=== PATIENT | male | born 1955 | race Caucasian/White ===

== ENCOUNTER 2017-11-22 14:21 | Inpatient (IN) | payer OTHER ==
[2017-11-22] MEDS ORDERED: ONDANSETRON 4 MG/2 ML VIAL IVP STA ×2 (15:19→17:02)
[2017-11-22] MEDS ORDERED: SODIUM CHLORIDE 0.9% 1,000 ML IV ONE (15:20)
--- NOTE | 2017-11-22 15:38 | ED ---
General Adult HPI - General Chief complaint: Shortness of Breath Stated complaint: fluid on abdomen/cancer pt Time Seen by Provider: 11/22/17 14:54 Source: patient, family Mode of arrival: ambulatory Limitations: no limitations - History of Present Illness Initial comments: 62-year-old male presenting with worsening abdominal pain shortness of breath and weakness. Patient has a history of pancreatic cancer with possible metastasis to the intestines. They state he was diagnosed with this when he had an exploratory laparotomy for a stricture on his colon. His and him state they do not believe in chemotherapy and they have been using homeopathic medication such as essential oils and vitamin therapy. They state they had an appointment with Dr. James at 5:30 to be seen today, but the patient was unable to wait to come in. He states he is having worsening shortness of breath while doing his daily activities he also feels that the pressure in his abdomen is making it difficult to breath. Denies any chest pain, cough, fevers chills. Denies any GI or urinary symptoms. He states he was scheduled to have a paracentesis in the past but they did not find enough fluid to do the procedure. - Related Data Home Medications Medication Instructions Recorded Confirmed Famotidine [Pepcid] 20 mg PO BID 02/28/16 02/28/16 Allergies Allergy/AdvReac Type Severity Reaction Status Date / Time No Known Allergies Allergy Verified 11/22/17 14:32 Review of Systems ROS Statement: Those systems with pertinent positive or pertinent negative responses have been documented in the HPI. Review of Systems Constitutional: Denies fever, chills. Positive generalized weakness Eyes: Denies change in vision, Denies pain Ears, nose, mouth, throat: Denies headaches, Denies sore throat Cardiovascular: Denies chest pain. Denies palpitations Respiratory: Positive shortness of breath, Denies cough Gastrointestinal: Positive abdominal pain. Positive nausea and vomiting. Denies diarrhea. Genitourinary: Denies hematuria, Denies infections Musculoskeletal: Denies pain, Denies swelling Integumentary: Denies rash Neurological: Denies headache, focal weakness, focal numbness. Positive lightheadedness Psychiatric: Denies anxiety, Denies depression Hematologic/Lymphatic: Denies easy bleeding or bruising ROS Other: All systems not noted in ROS Statement are negative. 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 pancreatic cancer History of Any Multi-Drug Resistant Organisms: None Reported Past Surgical History: Hernia Repair Additional Past Surgical History / Comment(s): UMBILICAL HERNIA (1996), RIGHT INGUINAL HERNIA (2010) Past Anesthesia/Blood Transfusion Reactions: No Reported Reaction Past Psychological History: No Psychological Hx Reported Smoking Status: Former smoker Past Alcohol Use History: None Reported Past Drug Use History: Marijuana - Past Family History Mother Family Medical History: Cancer Father Additional Family Medical History / Comment(s): "heart dsease" General Exam - General Exam Comments Initial Comments: General: Awake, alert, No acute Distress. Cachectic HENT: Normocephalic. Atraumatic Eyes: PERRL. EOMI. No scleral icterus. No injected conjunctiva Neck: Full ROM Chest/Lungs: Clear to auscultation bilaterally. No wheezing, rhonchi, or rales Cardiac: Regular rate, rhythm. No murmurs or rubs Abdomen/GI: Distended. Ascites. Epigastric tenderness. No rebound, guarding, or rigidity. Musculoskeletal: Full ROM Skin: Warm, dry, intact Neurologic: A/Ox3, no weakness, no sensory deficit, no abnormal gait, no coordination deficit Limitations: no limitations Course Vital Signs 11/22/17 11/22/17 11/22/17 14:26 15:31 16:30 Temperature 98 F Pulse Rate 58 L 63 81 Respiratory 18 20 20 Rate Blood Pressure 117/79 113/62 119/56 O2 Sat by Pulse 100 96 99 Oximetry 11/22/17 17:22 Temperature Pulse Rate 77 Respiratory 20 Rate Blood Pressure 138/70 O2 Sat by Pulse 95 Oximetry Medical Decision Making - Medical Decision Making 62-year-old male presenting with abdominal pain worsening shortness of breath. Initial exam the patient is awake, alert, no acute distress. VSS. KG shows a right bundle branch block. Do not believe that this is actually a left anterior fascicular block as read by the EKG as the patient was having hiccups during the EKG. Patient has ascites on exam. His CT confirmed the ascites and showed small pleural effusions bilaterally. He is in no acute restaurant stress. Patient has no fever and no white count at this time. Unlikely spontaneous bacterial peritonitis. Will elect to hold on any abx at this time. Spoke with Dr. Metcalf who states place an order for an ultrasound guided paracentesis and admit the patient to medicine. Upon entering the room discussed with patient and he was having an episode of hematemesis. Vital signs remained stable. He remained in no acute distress. He has a history of a chronic gastritis and noncompliance with his Pepcid but no varices were seen on previous EGD. Patient was given 40 mg of breath contacts. I spoke with Dr. Weinstein who is agreeable to admission with on consult as well as Dr. Metcalf. Patient currently stable for transfer to the floor. - Lab Data Result diagrams: 11/22/17 15:09 11/22/17 15:09 Lab Results 11/22/17 11/22/17 11/22/17 Range/Units 15:09 15:09 15:09 WBC 6.2 (3.8-10.6) k/uL RBC 4.20 L (4.30-5.90) m/uL Hgb 12.7 L (13.0-17.5) gm/dL Hct 39.1 (39.0-53.0) % MCV 92.9 (80.0-100.0) fL MCH 30.3 (25.0-35.0) pg MCHC 32.6 (31.0-37.0) g/dL RDW 13.6 (11.5-15.5) % Plt Count 426 (150-450) k/uL Neutrophils % 68 % Lymphocytes % 18 % Monocytes % 6 % Eosinophils % 6 % Basophils % 1 % Neutrophils # 4.2 (1.3-7.7) k/uL Lymphocytes # 1.1 (1.0-4.8) k/uL Monocytes # 0.4 (0-1.0) k/uL Eosinophils # 0.4 (0-0.7) k/uL Basophils # 0.0 (0-0.2) k/uL PT (9.0-12.0) sec INR (<1.2) Sodium 139 (137-145) mmol/L Potassium 4.2 (3.5-5.1) mmol/L Chloride 105 (98-107) mmol/L Carbon Dioxide 28 (22-30) mmol/L Anion Gap 6 mmol/L BUN 15 (9-20) mg/dL Creatinine 0.90 (0.66-1.25) mg/dL Est GFR (CKD-EPI)AfAm >90 (>60 ml/min/1.73 sqM) Est GFR (CKD-EPI)NonAf >90 (>60 ml/min/1.73 sqM) Glucose 122 H (74-99) mg/dL Calcium 9.5 (8.4-10.2) mg/dL Total Bilirubin 0.3 (0.2-1.3) mg/dL Conjugated Bilirubin 0.0 (0.0-0.3) mg/dL Unconjugated Bilirubin 0.1 (0.0-1.1) mg/dL Delta Bilirubin 0.2 (0.0-0.2) mg/dL AST 46 (17-59) U/L ALT 47 (21-72) U/L Alkaline Phosphatase 136 H (38-126) U/L Troponin I <0.012 (0.000-0.034) ng/mL Total Protein 6.5 (6.3-8.2) g/dL Albumin 3.4 L (3.5-5.0) g/dL Lipase 86 (23-300) U/L // Range/Units 15:09 WBC (3.8-10.6) k/uL RBC (4.30-5.90) m/uL Hgb (13.0-17.5) gm/dL Hct (39.0-53.0) % MCV (80.0-100.0) fL MCH (25.0-35.0) pg MCHC (31.0-37.0) g/dL RDW (11.5-15.5) % Plt Count (150-450) k/uL Neutrophils % % Lymphocytes % % Monocytes % % Eosinophils % % Basophils % % Neutrophils # (1.3-7.7) k/uL Lymphocytes # (1.0-4.8) k/uL Monocytes # (0-1.0) k/uL Eosinophils # (0-0.7) k/uL Basophils # (0-0.2) k/uL PT 9.6 (9.0-12.0) sec INR 1.0 (<1.2) Sodium (137-145) mmol/L Potassium (3.5-5.1) mmol/L Chloride (98-107) mmol/L Carbon Dioxide (22-30) mmol/L Anion Gap mmol/L BUN (9-20) mg/dL Creatinine (0.66-1.25) mg/dL Est GFR (CKD-EPI)AfAm (>60 ml/min/1.73 sqM) Est GFR (CKD-EPI)NonAf (>60 ml/min/1.73 sqM) Glucose (74-99) mg/dL Calcium (8.4-10.2) mg/dL Total Bilirubin (0.2-1.3) mg/dL Conjugated Bilirubin (0.0-0.3) mg/dL Unconjugated Bilirubin (0.0-1.1) mg/dL Delta Bilirubin (0.0-0.2) mg/dL AST (17-59) U/L ALT (21-72) U/L Alkaline Phosphatase (38-126) U/L Troponin I (0.000-0.034) ng/mL Total Protein (6.3-8.2) g/dL Albumin (3.5-5.0) g/dL Lipase (23-300) U/L Disposition Clinical Impression: Ascites, Shortness of breath, Pancreatic cancer Disposition: [facility] Decision to Admit Reason: Admit from EC Decision Date: 11/22/17 Decision Time: 17:36
[2017-11-22 15:46] LABS: Basophils % (A) 1 %; Eosinophils # (A) 0.4 k/uL (0-0.7); Eosinophils % (A) 6 %; HCT 39.1 % (39.0-53.0); HGB 12.7 gm/dL (13.0-17.5); Lymphocytes # (A) 1.1 k/uL (1.0-4.8); Lymphocytes % (A) 18 %; MCH 30.3 pg (25.0-35.0); MCHC 32.6 g/dL (31.0-37.0); MCV 92.9 fL (80.0-100.0); Mean Platelet Volume 7.5; Monocytes # (A) 0.4 k/uL (0-1.0); Monocytes % (A) 6 %; Neutrophils # (A) 4.2 k/uL (1.3-7.7); Neutrophils % (A) 68 %; Platelet Count 426 k/uL (150-450); RDW 13.6 % (11.5-15.5); WBC 6.2 k/uL (3.8-10.6)
[2017-11-22 15:51] LABS: Prothrombin Time 9.6 sec (9.0-12.0)
[2017-11-22 15:56] LABS: ALT 47 U/L (21-72); AST 46 U/L (17-59); Albumin 3.4 g/dL (3.5-5.0); Alkaline Phosphatase 136 U/L (38-126); Anion Gap 6 mmol/L; Bilirubin, Delta 0.2 mg/dL (0.0-0.2); Bilirubin,Unconjugated 0.1 mg/dL (0.0-1.1); Blood Urea Nitrogen 15 mg/dL (9-20); Calcium 9.5 mg/dL (8.4-10.2); Carbon Dioxide 28 mmol/L (22-30); Chloride 105 mmol/L (98-107); Glucose 122 mg/dL (74-99); Lipase 86 U/L (23-300); Potassium 4.2 mmol/L (3.5-5.1); Sodium 139 mmol/L (137-145); Total Bilirubin 0.3 mg/dL (0.2-1.3); Total Protein 6.5 g/dL (6.3-8.2)
--- NOTE | 2017-11-22 16:05 | XR ---
EXAMINATION TYPE: XR chest 2V DATE OF EXAM: 11/22/2017 COMPARISON: 01/11/2014 HISTORY: 62-year-old male with weakness and shortness of breath TECHNIQUE: AP and lateral views FINDINGS: Low lung volumes with crowded vascular markings. Focal bibasilar densities likely atelectasis. Visual ized upper lungs are clear. No significant pleural effusion. IMPRESSION: Hypoventilatory changes with basilar densities likely representing atelectasis. Otherwise, no definit e acute process.
--- NOTE | 2017-11-22 16:42 | CT ---
EXAMINATION TYPE: CT abdomen pelvis w con DATE OF EXAM: 11/22/2017 COMPARISON: None HISTORY: Pancreatic cancer stage 4, abdominal pain CT DLP: 502.10 mGycm Automated exposure control for dose reduction was used. TECHNIQUE: Helical acquisition of images was performed from the lung bases through the pelvis. CONTRAST: Performed without Oral Contrast and with IV Contrast, patient injected with 100 mL of Isovue 300. FINDINGS: There are small bilateral pleural effusions. There is some patchy atelectasis at the lung bases. Ther e is no pericardial effusion. There is a large amount of ascites fluid throughout the abdomen. Liver shows no focal defect. Bile ducts are not dilated. Gallbladder appears normal. I see no discrete panc reatic mass. Pancreatic duct is not dilated. There is some atrophy of the tail of the pancreas. There is no adrenal mass. Kidneys show satisfactory contrast opacification. There is no hydronephrosi s. There is no retroperitoneal adenopathy. Abdominal aorta is atheromatous. I see no intestinal wall thickening. There are no dilated loops. Bladder distends smoothly. There are spondylotic changes in t he lumbar spine. I see no bony destructive process. IMPRESSION: THERE IS MASSIVE ASCITES. SMALL PLEURAL EFFUSIONS WITH BASILAR PULMONARY ATELECTASIS. ATROPHY OF THE TAIL THE PANCREAS. NO PANCREATIC MASS IDENTIFIED. ATHEROSCLEROTIC VASCULAR DISEASE.
[2017-11-22] MEDS ORDERED: PANTOPRAZOLE 40 MG/10 ML VIAL IVP STA (17:01)
[2017-11-22] MEDS ORDERED: MORPHINE SULFATE 4 MG/ML SYRINGE IV PRN (17:09)
[2017-11-22] MEDS ORDERED: traMADol 50 MG TAB PO PRN (17:09)
[2017-11-22] MEDS ORDERED: ONDANSETRON 4 MG/2 ML VIAL IVP PRN (17:09)
[2017-11-22] MEDS ORDERED: NALOXONE 0.4 MG/ML 1 ML VIAL IV PRN (17:09)
[2017-11-22] MEDS: LACTATED RINGERS 1,000 ML IV SCH (18:24)
[2017-11-22] MEDS: PANTOPRAZOLE 40 MG/10 ML VIAL IV SCH (20:42)
[2017-11-23 00:18] LABS: Glucose,Whole Blood 97 mg/dL (75-99)
[2017-11-23 05:43] LABS: Glucose,Whole Blood 97 mg/dL (75-99)
[2017-11-23] MEDS: LACTATED RINGERS 1,000 ML IV SCH ×2 (07:06→17:09)
[2017-11-23 07:28] LABS: Basophils % (A) 1 %; Eosinophils # (A) 0.5 k/uL (0-0.7); Eosinophils % (A) 8 %; HCT 35.2 % (39.0-53.0); HGB 11.9 gm/dL (13.0-17.5); Lymphocytes # (A) 1.5 k/uL (1.0-4.8); Lymphocytes % (A) 26 %; MCH 31.2 pg (25.0-35.0); MCHC 33.7 g/dL (31.0-37.0); MCV 92.5 fL (80.0-100.0); Mean Platelet Volume 7.6; Monocytes # (A) 0.5 k/uL (0-1.0); Monocytes % (A) 8 %; Neutrophils # (A) 3.3 k/uL (1.3-7.7); Neutrophils % (A) 56 %; Platelet Count 389 k/uL (150-450); RBC 3.81 m/uL (4.30-5.90); RDW 13.6 % (11.5-15.5); WBC 5.9 k/uL (3.8-10.6)
[2017-11-23 07:46] LABS: Anion Gap 3 mmol/L; Blood Urea Nitrogen 15 mg/dL (9-20); Calcium 8.9 mg/dL (8.4-10.2); Carbon Dioxide 29 mmol/L (22-30); Chloride 108 mmol/L (98-107); Glucose 82 mg/dL (74-99); Magnesium 1.8 mg/dL (1.6-2.3); Sodium 140 mmol/L (137-145)
[2017-11-23] MEDS: PANTOPRAZOLE 40 MG/10 ML VIAL IV SCH ×2 (08:34→20:59)
[2017-11-23 12:02] LABS: Glucose,Whole Blood 88 mg/dL (75-99)
[2017-11-23 14:10] LABS: Reticulocyte % 1.3 % (0.5-2.0)
[2017-11-23 14:30] VITALS: BMI 19.5
--- NOTE | 2017-11-23 15:13 | P.CONS ---
History of Present Illness - Reason for Consult Consult date: 11/23/17 Pancreatic Cancer Requesting physician: Kavita Ryan - Chief Complaint Ascites pain - History of Present Illness Patient is a 62 y.o.malewho originally presented in August of 2017 to [facility] with generally minor and well-controlled medical problems. The patient had been having some vague abdominal pain, as well as early satiety since mid 2016. Since early 2017, the symptoms had become more prominent. The patient also experienced intermittent constipation, nausea, and decreased oral intake due to the above. He lost about 30 pounds, since 05/16. The patient was evaluated at [facility] with CT scans and colonoscopy. On colonoscopy, the scope could not be passed beyond the sigmoid colon due to a tight stricture. The patient was therefore seen at [facility] in [place], and taken to surgery for exploration. He was found to have pelvic mass causing sigmoid colon obstruction, as well as multiple omental deposits stricturing the large and small bowel at multiple locations. Because of the extent of his disease with proximal and distal involvement, he was not felt to be a candidate for any diverting procedure and was closed up. Ascites fluid, as well as multiple omental nodule biopsies were done, which revealed moderately to poorly differented adenocarcinoma, felt to be suggestive of an upper GI, pancreatobiliary origin, less likely a pulmonary primary site. Biopsy resulted on September 13, 2017. He had baseline Ca19-9 and Baseline CEA which were both WNL. No prominant mass was shown on pancreas during initial imaging. He did undergo colonoscopy but it does not appear he had an EGD. 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 pancreatic cancer History of Any Multi-Drug Resistant Organisms: None Reported Past Surgical History: Hernia Repair Additional Past Surgical History / Comment(s): UMBILICAL HERNIA (1996), RIGHT INGUINAL HERNIA (2010) Past Anesthesia/Blood Transfusion Reactions: No Reported Reaction Past Psychological History: No Psychological Hx Reported Smoking Status: Former smoker Past Alcohol Use History: None Reported Past Drug Use History: Marijuana - Past Family History Mother Family Medical History: Cancer Father Additional Family Medical History / Comment(s): "heart dsease" Medications and Allergies Home Medications Medication Instructions Recorded Confirmed Type Ascorbic Acid [Vitamin C] 1,000 mg PO DAILY 11/23/17 11/23/17 History Cholecalciferol [Vitamin D3] 1,000 unit PO DAILY 11/23/17 11/23/17 History Echinacea 400 mg PO DAILY 11/23/17 11/23/17 History [place] 1 tab PO DAILY 11/23/17 11/23/17 History Ubidecarenone [Co Q-10] 100 mg PO DAILY 11/23/17 11/23/17 History Vitamin A 8,000 unit PO DAILY 11/23/17 11/23/17 History Vitamin E Acetate [Vitamin E] 200 unit PO DAILY 11/23/17 11/23/17 History Allergies Allergy/AdvReac Type Severity Reaction Status Date / Time No Known Allergies Allergy Verified 11/22/17 14:32 Physical Exam Vitals: Vital Signs Temp Pulse Pulse Resp BP BP Pulse Ox 11/23/17 08:41 70 14 11/23/17 04:31 98.5 F 70 14 118/71 96 11/23/17 00:00 67 15 11/22/17 21:47 98.2 F 67 15 102/59 93 L 11/22/17 17:22 77 20 138/70 95 11/22/17 16:30 81 20 119/56 99 11/22/17 15:31 63 20 113/62 96 11/22/17 14:26 98 F 58 L 18 117/79 100 Intake and Output 11/22/17 11/23/17 11/23/17 22:59 06:59 14:59 Intake Total 0 750 Output Total 1 Balance 0 749 Intake: Intake, IV Titration 750 Amount Lactated Ringers 1,000 ml 750 @ 75 mls/hr IV .[id number] [facility] Rx#:[id number] Oral 0 Output: Urine/Stool Mix 1 Other: Voiding Method Toilet Toilet # Voids 1 1 Weight 56.699 kg General - Cachexia, Pale, Chronically ill appearing Head - NC, NT Neck - Supple, Trachea Midline Lungs - Diminished Biolateral Bases, No crackles or Wheezes or increased effort noted Abdomen - Firm, Distended, Bowel Sounds presnt x4 Extremities - Evidenced muscular Atrophy in all 4 extremitys, Positive pulses Neurological - No Neurological defects noted Mood is cooperative although anxious. Results CBC & Chem 7: 11/23/17 06:53 11/23/17 06:53 Labs: Abnormal Lab Results - Last 24 Hours (Table) 11/22/17 11/22/17 11/23/17 Range/Units 15:09 15:09 06:53 RBC 4.20 L 3.81 L (4.30-5.90) m/uL Hgb 12.7 L 11.9 L (13.0-17.5) gm/dL Hct 35.2 L (39.0-53.0) % Chloride (98-107) mmol/L Glucose 122 H (74-99) mg/dL Alkaline Phosphatase 136 H (38-126) U/L Albumin 3.4 L (3.5-5.0) g/dL 11/23/17 Range/Units 06:53 RBC (4.30-5.90) m/uL Hgb (13.0-17.5) gm/dL Hct (39.0-53.0) % Chloride 108 H (98-107) mmol/L Glucose (74-99) mg/dL Alkaline Phosphatase (38-126) U/L Albumin (3.5-5.0) g/dL Comments: PET Scan From [facility] on 11/16/17 - IMPRESSION 1. MILD DIFFUSE UPTAKE THROUGH THE ESOPHAGUS INCREASING TOWARDS THE GASTROESOPHAGEAL JUNCTION. THIS COULD BE RELATED TO INFLAMMATORY CHANGE. NEOPLASM CANNOT BE EXCLUDED. ADDITIONAL WORKUP OF THE ESOPHAGUS IS RECOMMENDED. 2. 2 PULMONARY NODULES WITHIN THE RIGHT MID LUNG DO NOT HAVE SIGNIFICANT UPTAKE ALTHOUGH THESE ARE VERY SMALL AND MAY BE BELOW THE THRESHOLD FOR ADEQUATE SENSITIVITY. 3. FOCAL UPTAKE WITHIN THE MID RIGHT TONSILLAR PILLAR. DIRECT VISUALIZATION IS RECOMMENDED. 4. DIFFUSE ASCITES. Assessment and Plan Plan: Assessment and Recommendations: 1. 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 - Patient was diagnosed in August 2017, he chose to forgo standardized treatment and seek his own holistic approach. Over the past two months it appears he has not improved, and overall condition has worsened. He now is presenting for further evaluation and recommendations. - Recommend an EGD to rule out upper GI Esophageal primary versus heaptobiliary or Gastric Primary - He is hesitant to hear any options related to chemotherapy or evidence based recommendations. If he chooses to consider treatment an EGD is recommended. - Will also send tissue for further testing for MSI - Baseline CEA and Ca19-9 negative, will recheck this hospitalization. - Recent PET scan 11/16/17 was reviewed and shows increased uptake through Esophaggus towards GE Junctions, if EGD reveals likely primary of GE junction could test HER2, and provide options of other therapy 2. Abdominal Ascites and Discomfort: - Paracentesis both Diagnostic and Therapeutic Ordered - Await Fluid Cytology Physician Attestation: I have completed the full history and physical of this patient and agree with above dictation by Brenda Collazo NP Dictated as a scribe.
--- NOTE | 2017-11-23 16:49 | US ---
EXAMINATION TYPE: US paracentesis abd w/image DATE OF EXAM: 11/23/2017 COMPARISON: NONE HISTORY: Ascites. PROCEDURE: Maximal barrier technique was utilized. The skin overlying a suitable pocket of fluid was localized with ultrasound and the overlying skin was prepped and draped. Ultrasound was utilized with sterile technique. Lidocaine was used for local anesthesia and a skin efrain made with a scalpel. Catheter was advanced under direct ultrasound guidance into a suitable pocket of fluid and approximately 4.9 liter s of serous fluid were removed. Catheter was withdrawn and hemostasis achieved. There is no immedia te complication; the patient is discharged in stable condition. IMPRESSION: STATUS POST ULTRASOUND GUIDED PARACENTESIS FOR PALLIATION OF ASCITES. THIS PROCEDURE WA S PERFORMED BY THE UNDERSIGNED. Specimen sent for laboratory analysis.
[2017-11-23 17:09] LABS: Glucose,Whole Blood 84 mg/dL (75-99)
[2017-11-23] MEDS: NYSTATIN 100,000 UNIT/ML SUSP 500,000 UNIT/5 ML CUP PO SCH ×2 (17:40→22:37)
[2017-11-23 18:15] LABS: Appearance,BF Clear; Nucleated Cells, Body Fluid 28 /uL; RBC, Body Fluid 23 /uL
[2017-11-23 18:16] LABS: Mononuclear WBC,Body Fluid 95 %; Polynuclear WBC,Body Fluid 3 %; Total Cells Counted,Body Fluid 100
[2017-11-23 19:02] LABS: Cancer Antigen 19-9 4.4 U/mL (0.0-34.9)
[2017-11-23] MEDS ORDERED: LOPERAMIDE 2 MG CAP PO PRN (20:11)
[2017-11-23] MEDS ORDERED: MELATONIN 3 MG TABLET PO PRN (21:10)
--- NOTE | 2017-11-23 22:32 | P.HPIM ---
History of Present Illness H&P Date: 11/23/17 Chief Complaint: Abdominal distention Patient is a 62-year-old male came to ER with complaints of abdominal pain, shortness of breath and weakness. Patient is supposed to follow up with Dr. James as an outpatient but his symptoms got worse and felt very short of breath and abdominal distention which made him to come to ER. Patient says that he was diagnosed with pancreatic cancer and possible metastasis sometime in August 2017. Patient was seen at [facility] recently where he had CT of the abdominal pelvis and colonoscopy was attempted but could not be passed beyond sigmoid colon. Patient was seen at [facility] where he underwent explored laparotomy and colon resection due to stricture by Dr. Mohan and was told that he has pancreatic cancer as per the family. Patient had biopsy which showed poorly differentiated adenocarcinoma. [place] to be suggestive of upper GI, pancreatic to biliary origen. Less likely pulmonary primary. Patient does have weight loss. Patient otherwise denied any complaints of cough or sputum production. No fever no chills. Patient does have nausea and abdominal distention. Patient does have diarrhea on and off. Denied any dysuria. No chest pain. No headache or dizziness. Chest x-ray showed hypoventilatory changes with basilar densities likely representing atelectasis. Otherwise no definite acute process. CT abdomen and pelvis showed massive ascites. Small pleural effusion with basilar pulmonary atelectasis. Atrophy of the tail of the pancreas. No pancreatic mass has been identified. Review of Systems Constitutional: Patient denies any fever or chills . No generalized weakness or weight loss. Abdomen: Patient does have abdominal distention and nausea. Also having diarrhea. Cardiovascular: Patient denies any chest pain or short of breath no palpitations. Respiratory: patient denied any cough is from production. No shortness of breath Neurologic: Patient denied any numbness or tingling headache. Musculoskeletal: Patient denies any complaints of joint swelling or deformity. Skin: Negative Psychiatric: Negative Endocrine: No heat or cold intolerance. No recent weight gain. Genitourinary: No dysuria or hematuria. 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 pancreatic cancer History of Any Multi-Drug Resistant Organisms: None Reported Past Surgical History: Hernia Repair Additional Past Surgical History / Comment(s): UMBILICAL HERNIA (1996), RIGHT INGUINAL HERNIA (2010) Past Anesthesia/Blood Transfusion Reactions: No Reported Reaction Past Psychological History: No Psychological Hx Reported Smoking Status: Former smoker Past Alcohol Use History: None Reported Past Drug Use History: Marijuana - Past Family History Mother Family Medical History: Cancer Father Additional Family Medical History / Comment(s): "heart dsease" Medications and Allergies Home Medications Medication Instructions Recorded Confirmed Type Ascorbic Acid [Vitamin C] 1,000 mg PO DAILY 11/23/17 11/23/17 History Cholecalciferol [Vitamin D3] 1,000 unit PO DAILY 11/23/17 11/23/17 History Echinacea 400 mg PO DAILY 11/23/17 11/23/17 History [place] 1 tab PO DAILY 11/23/17 11/23/17 History Ubidecarenone [Co Q-10] 100 mg PO DAILY 11/23/17 11/23/17 History Vitamin A 8,000 unit PO DAILY 11/23/17 11/23/17 History Vitamin E Acetate [Vitamin E] 200 unit PO DAILY 11/23/17 11/23/17 History Allergies Allergy/AdvReac Type Severity Reaction Status Date / Time No Known Allergies Allergy Verified 11/22/17 14:32 Physical Exam Vitals: Vital Signs Temp Pulse Pulse Resp BP BP Pulse Ox 11/23/17 08:41 70 14 11/23/17 04:31 98.5 F 70 14 118/71 96 11/23/17 00:00 67 15 11/22/17 21:47 98.2 F 67 15 102/59 93 L 11/22/17 17:22 77 20 138/70 95 11/22/17 16:30 81 20 119/56 99 11/22/17 15:31 63 20 113/62 96 11/22/17 14:26 98 F 58 L 18 117/79 100 Intake and Output 11/22/17 11/23/17 11/23/17 22:59 06:59 14:59 Intake Total 0 750 600 Output Total 1 Balance 0 749 600 Intake: Intake, IV Titration 750 600 Amount Lactated Ringers 1,000 ml 750 600 @ 75 mls/hr IV .[id number] COUNT INCLUDES THE [facility] Rx#:[id number] Oral 0 Output: Urine/Stool Mix 1 Other: Voiding Method Toilet Toilet # Voids 1 1 Weight 56.699 kg PHYSICAL EXAMINATION: Patient is lying in the bed comfortably, no acute distress, awake alert and oriented.. HEENT: Normocephalic. Neck is supple. Pupils reactive. Nostrils clear. Oral cavity is moist. Ears reveal no drainage. Neck reveals no JVD, carotid bruits, or thyromegaly. CHEST EXAMINATION: Trachea is central. Symmetrical expansion. Lung bell clear to auscultation and percussion. CARDIAC: Normal S1, S2 with no gallops. No murmurs ABDOMEN: Soft. Distended. Bowel sounds normal. No organomegaly. No abdominal bruits. Extremities: reveal no edema. No clubbing or cyanosis Neurologically awake, alert, oriented x3 with well-coordinated movements. No focal deficits noted Skin: No rash or skin lesions. Psychiatric: Coperative. Nonsuicidal Musculoskeletal: No joint swelling or deformity. Normal range of motion. Results CBC & Chem 7: 11/23/17 06:53 11/23/17 06:53 Labs: Abnormal Lab Results - Last 24 Hours (Table) 11/22/17 11/22/17 11/23/17 Range/Units 15:09 15:09 06:53 RBC 4.20 L 3.81 L (4.30-5.90) m/uL Hgb 12.7 L 11.9 L (13.0-17.5) gm/dL Hct 35.2 L (39.0-53.0) % Chloride (98-107) mmol/L Glucose 122 H (74-99) mg/dL Alkaline Phosphatase 136 H (38-126) U/L Albumin 3.4 L (3.5-5.0) g/dL 11/23/17 Range/Units 06:53 RBC (4.30-5.90) m/uL Hgb (13.0-17.5) gm/dL Hct (39.0-53.0) % Chloride 108 H (98-107) mmol/L Glucose (74-99) mg/dL Alkaline Phosphatase (38-126) U/L Albumin (3.5-5.0) g/dL Thrombosis Risk Factor Assmnt - Choose All That Apply Any of the Below Risk Factors Present?: No Assessment and Plan Assessment: Adenocarcinoma of gastrointestinal origin as per recent laparotomy and biopsy. Severe ascites Possible malignant ascites Mild protein calorie malnutrition Normocytic anemia DVT prophylaxis Plan: Patient did underwent paracentesis with 4.9 L fluid removal. We will follow up fluid cytology, culture and cell count with differential. Repeat CEA and CA 19 was ordered. Oncology is following. Continue with symptomatic management otherwise. EGD with biopsies being planned. Further recommendations based on the clinical course. Time with Patient: Greater than 30
--- NOTE | 2017-11-23 23:44 | P.CONS ---
History of Present Illness - Reason for Consult Consult date: 11/23/17 Upper GI bleed Requesting physician: Arnulfo Weinstein - Chief Complaint Abdominal pain shortness of breath and weakness - History of Present Illness The patient is a 62-year-old male who originally presented in August 2017 to [facility] with complaints of abdominal pain and early satiety. The patient reported progressive symptoms including intermittent constipation, nausea and decreased oral intake as well as weight loss of approximately 30 pounds. Patient was evaluated at [facility] with CT scan and colonoscopy and per the record a tight stricture of the sigmoid colon was found. The patient was subsequently taken for surgery at [facility] where he was found to have a pelvic mass causing sigmoid obstruction with multiple omental deposits, stricturing the large and small bowels multiple locations. Patient was not felt to be a candidate for a diverting procedure at that time given the diffuse nature of his disease. Biopsies were taken of omental nodules and a ascites fluid was sent for analysis at that time which revealed poorly differentiated adenocarcinoma of upper GI, pancreaticobiliary or pulmonary primary. The patient did not follow-up with oncology or surgery after that time as he chose to treat his disease with homeopathic medicine. He presents back to the emergency department with complaints of upper abdominal pain, shortness of breath and weakness. He denies any blood per rectum, melena or constipation. He reports hourly passage of small amounts of stool. He reports multiple episodes of nausea and vomiting with production of coffee ground emesis. He denies any rimma red blood in his vomit. On presentation he was found to be mildly anemic with a hemoglobin of 11.9. CT scan was done which showed ascites, atrophy of the pancreatic tail with no discrete pancreatic mass seen. He does report further weight loss since last being seen. No fevers or chills. Review of Systems Constitutional: Reports fatigue, further weight loss since last seen Eyes: Denies any change in vision, pain denies Nose: Denies any congestion, rhinorrhea Ears: Denies any change in hearing, new onset tinnitus Lungs: Denies any wheezing, shortness of breath, cough, or hemoptysis Cardiac: Denies any pain in chest, shortness of breath, lower extremity swelling Abdomen: As per history of present illness Skin: Denies any new rashes or pruritus Urine: Denies any dysuria or hematuria Neuro: Denies any change in mental status, new focal deficits Past Medical History Past Medical History: No Reported History Additional Past Medical History / Comment(s): 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 pancreatic cancer History of Any Multi-Drug Resistant Organisms: None Reported Past Surgical History: Hernia Repair Additional Past Surgical History / Comment(s): UMBILICAL HERNIA (1996), RIGHT INGUINAL HERNIA (2010) Past Anesthesia/Blood Transfusion Reactions: No Reported Reaction Past Psychological History: No Psychological Hx Reported Smoking Status: Former smoker Past Alcohol Use History: None Reported Past Drug Use History: Marijuana - Past Family History Mother Family Medical History: Cancer Father Additional Family Medical History / Comment(s): "heart dsease" Medications and Allergies Home Medications Medication Instructions Recorded Confirmed Type Ascorbic Acid [Vitamin C] 1,000 mg PO DAILY 11/23/17 11/23/17 History Cholecalciferol [Vitamin D3] 1,000 unit PO DAILY 11/23/17 11/23/17 History Echinacea 400 mg PO DAILY 11/23/17 11/23/17 History [place] 1 tab PO DAILY 11/23/17 11/23/17 History Ubidecarenone [Co Q-10] 100 mg PO DAILY 11/23/17 11/23/17 History Vitamin A 8,000 unit PO DAILY 11/23/17 11/23/17 History Vitamin E Acetate [Vitamin E] 200 unit PO DAILY 11/23/17 11/23/17 History Allergies Allergy/AdvReac Type Severity Reaction Status Date / Time No Known Allergies Allergy Verified 11/22/17 14:32 Physical Exam Vitals: Vital Signs Temp Pulse Resp BP BP Pulse Ox 11/23/17 21:00 98.1 F 64 20 128/67 94 L 11/23/17 16:05 68 16 113/78 98 11/23/17 15:43 68 16 111/73 97 11/23/17 15:20 70 18 122/72 97 11/23/17 14:55 68 16 131/62 98 11/23/17 13:00 97.9 F 55 L 16 127/68 96 11/23/17 08:41 70 14 11/23/17 04:31 98.5 F 70 14 118/71 96 11/23/17 00:00 67 15 Intake and Output 11/23/17 11/23/17 11/24/17 14:59 22:59 06:59 Intake Total 600 300 Balance 600 300 Intake: Intake, IV Titration 600 Amount Lactated Ringers 1,000 ml 600 @ 75 mls/hr IV .[id number] [facility] Rx#:[id number] Oral 300 Other: Voiding Method Toilet # Voids 1 Weight 56.699 kg Constitutional: Lying in bed in no apparent distress Head: normocephalic/atraumatic Eyes: No icterus, no injection Mouth: Drymucous membranes Nose: No discharge noted Neck: Trachea midline Lungs: Normal air entry in all lung bell, no wheezing appreciated Abdomen: Soft, nontender, nondistended, normal bowel sounds. No guarding or rigidity Skin: No rashes, no jaundice Neuro: Awake alert and oriented 3, no focal deficits Results CBC & Chem 7: 11/23/17 06:53 11/23/17 06:53 Labs: Abnormal Lab Results - Last 24 Hours (Table) 11/23/17 11/23/17 Range/Units 06:53 06:53 RBC 3.81 L (4.30-5.90) m/uL Hgb 11.9 L (13.0-17.5) gm/dL Hct 35.2 L (39.0-53.0) % Chloride 108 H (98-107) mmol/L Microbiology - Last 24 Hours (Table) 11/22/17 15:09 Blood Culture - Preliminary Blood No Growth after [address] scan - abdomen: report reviewed (Findings of ascites, atrophy of the tail of the pancreas with no discrete pancreatic mass seen) Assessment and Plan (1) Coffee ground emesis Narrative/Plan: Reports multiple episodes of coffee-ground emesis prior to presentation. Hemoglobin found to be fairly stable at 12.7-11.9 on presentation. Unknown etiology, may be related to underlying malignancy or other GI pathology such as peptic ulcer disease, erosions etc. Current Visit: Yes Status: Acute Code(s): K92.0 - HEMATEMESIS SNOMED Code( s): 328779411 (2) Abdominal pain Narrative/Plan: But secondary to underlying poorly differentiated adenocarcinoma of unknown primary. Current Visit: Yes Status: Acute Code(s): R10.9 - UNSPECIFIED ABDOMINAL PAIN SNOMED Code(s): 75153449 (3) Adenocarcinoma Narrative/Plan: Poorly differentiated adenocarcinoma of unknown primary. Diagnosis was made on sampling of omental masses and ascites. No discrete pancreatic lesion seen on CT scan on this hospitalization. Current Visit: Yes Status: Acute Code(s): C80.1 - MALIGNANT (PRIMARY) NEOPLASM, UNSPECIFIED SNOMED Code(s): 800822220 (4) Ascites Narrative/Plan: Secondary to above. Current Visit: Yes Status: Acute Code(s): R18.8 - OTHER ASCITES SNOMED Code(s): 588799048 Plan: Supportive care Clear liquid diet Nothing by mouth after midnight Monitor hemoglobin and hematocrit and transfuse as needed Protonix IV twice a day Case discussed with hematology/oncology service requesting EGD at this time for further evaluation (rule out upper GI tract as source of adenocarcinoma) We will continue to follow Thank you for allowing to participate in the care of this patient
[2017-11-24 06:59] LABS: Glucose,Whole Blood 103 mg/dL (75-99)
[2017-11-24] MEDS: NYSTATIN 100,000 UNIT/ML SUSP 500,000 UNIT/5 ML CUP PO SCH ×4 (08:41→21:10)
[2017-11-24] MEDS: PANTOPRAZOLE 40 MG/10 ML VIAL IV SCH ×2 (08:42→16:51)
[2017-11-24] MEDS: LACTATED RINGERS 1,000 ML IV SCH ×2 (08:48→15:11)
[2017-11-24 11:31] LABS: Glucose,Whole Blood 94 mg/dL (75-99)
[2017-11-24] MEDS ORDERED: IV FLUID CONTINUATION 500 ML IV ONE (13:12)
--- NOTE | 2017-11-24 13:55 | P.PCN ---
Date of Procedure: 11/24/17 Description of Procedure: BRIEF HISTORY: Patient is a 62-year-old, pleasant, male patient with a history of metastatic poorly differentiated adenocarcinoma of unknown etiology, glenna of any chemotherapy or radiation therapy for definitive surgical intervention who presents to the hospital with complaints of coffee-ground emesis and abdominal fullness. The patient was told given prior workup that the likely etiology of his metastatic cancer was a pancreatic primary, however on computed tomography scan on this admission lesion was seen in the pancreas. He reports multiple episodes of coffee-ground emesis prior to presentation. He denies any melena or hematochezia and reports passing small amounts of soft stool. PROCEDURE PERFORMED: Esophagogastroduodenoscopy with cold biopsy. PREOPERATIVE DIAGNOSIS: Anemia, coffee-ground emesis, poorly differentiated adenocarcinoma with unknown primary. IV sedation per anesthesia. PROCEDURE: After informed consent was obtained, the patient was brought into the endoscopy unit. IV sedation was administered by Anesthesia under continuous monitoring. Initially the Olympus GIF-180 video endoscope was inserted into the mouth. Esophagus intubated without any difficulty. It was gradually advanced into the stomach and duodenum and carefully examined. The duodenum was somewhat tortuous and difficult insufflated likely secondary to patient's metastatic tumor burden and external compression. However no abnormalities of the duodenal mucosa were noted. The duodenum was deeply intubated without any evidence of malignancy on evaluation of the tissue. Biopsies were taken. The scope at this time was withdrawn to the stomach, adequately insufflated with air , and upon careful examination, mucosa of the antrum, body, cardia and the fundus appeared grossly normal with mild scattered gastritis which was biopsied. The scope was then withdrawn into the esophagus. The GE junction was located at 41 cm from the incisors. The esophagus appeared normal with a small hiatal hernia noted and an irregular Z line which was biopsied. No evidence of malignancy. There were no erosions or ulcerations seen and the patient tolerated the procedure well. IMPRESSION: 1. Deformed, tortuous stomach and duodenum likely from external compression from patient's metastatic tumor burden, however no evidence of malignancy in esophagus, stomach or small bowel. 2. Gastritis, biopsied. Duodenal biopsies. 3. Irregular Z line at 41 cm from the incisors without evidence of malignancy, biopsied. 4. Small hiatal hernia. RECOMMENDATIONS: The findings of this examination were discussed with the patient. Await pathology from biopsies. No evidence of malignancy on examination of esophagus stomach and small bowel. Continue to monitor hemoglobin and hematocrit. Appreciate recommendations from hematology/oncology service.
--- NOTE | 2017-11-24 16:55 | P.PN ---
Subjective Progress Note Date: 11/24/17 Principal diagnosis: Metastatic Adenocarcinoma with ascites Esequiel is status post EGD and Paracentesis (5Liters removed). Patient is feeling better since paracentesis Objective - Vital Signs Vital signs: Vital Signs Temp 97 F L 11/24/17 13:00 Pulse 57 L 11/24/17 13:00 Resp 16 11/24/17 13:00 BP 121/63 11/24/17 13:00 Pulse Ox 96 11/24/17 13:00 Intake & Output 11/23/17 11/24/17 11/24/17 18:59 06:59 18:59 Intake Total 600 300 590 Balance 600 300 590 Weight 56.699 kg 56.699 kg 56.699 kg Intake: IV 350 Intake, IV Titration 600 Amount Lactated Ringers 1,000 ml 600 @ 75 mls/hr IV .[id number] [facility] Rx#:[id number] Oral 300 240 Other: Voiding Method Toilet Toilet Toilet # Voids 1 1 - Exam eneral - Cachexia, Pale, Chronically ill appearing Head - NC, NT Neck - Supple, Trachea Midline Lungs - Diminished Biolateral Bases, No crackles or Wheezes or increased effort noted Abdomen - Firm, Distended, Bowel Sounds presnt x4 Extremities - Evidenced muscular Atrophy in all 4 extremitys, Positive pulses Neurological - No Neurological defects noted Mood is cooperative although anxious. - Labs CBC & Chem 7: 11/23/17 06:53 11/23/17 06:53 Labs: Abnormal Lab Results - Last 24 Hours (Table) 11/23/17 11/24/17 Range/Units 06:53 06:57 POC Glucose (mg/dL) 103 H (75-99) mg/dL Iron 42 L (65-175) ug/dL TIBC 221 L (228-460) ug/dL Vitamin B12 1289.0 H (200.0-944.0) pg/mL Microbiology - Last 24 Hours (Table) 11/23/17 15:25 Gram Stain - Preliminary Paracentesis Fluid Body Fluid Culture - Preliminary 11/23/17 15:25 Anaerobic Culture - Preliminary Ascites Fluid 11/22/17 15:09 Blood Culture - Preliminary Blood No Growth after 24 hours Assessment and Plan Plan: Assessment and Recommendations: 1. 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 - Patient was diagnosed in August 2017, he chose to forgo standardized treatment and seek his own holistic approach. Over the past two months it appears he has not improved, and overall condition has worsened. He now is presenting for further evaluation and recommendations. - Recommend an EGD to rule out upper GI Esophageal primary versus heaptobiliary or Gastric Primary - He is hesitant to hear any options related to chemotherapy or evidence based recommendations. If he chooses to consider treatment an EGD is recommended. - Will also send tissue for further testing for MSI - Baseline CEA and Ca19-9 negative, will recheck this hospitalization. - Recent PET scan 11/16/17 was reviewed and shows increased uptake through Esophaggus towards GE Junctions, if EGD reveals likely primary of GE junction could test HER2, and provide options of other therapy - Await pathology from EGD - FOllow-up in office next week with Dr. Pelletier 2. Abdominal Ascites and Discomfort: - Paracentesis both Diagnostic and Therapeutic Ordered - Await Fluid Cytology
[2017-11-24 22:18] LABS: Glucose,Whole Blood 119 mg/dL (75-99)
--- NOTE | 2017-11-24 23:38 | P.PN ---
Subjective Progress Note Date: 11/24/17 Principal diagnosis: Ascites Adenocarcinoma of the GI tract Patient is a 62-year-old male came to ER with complaints of abdominal pain, shortness of breath and weakness. Patient is supposed to follow up with Dr. James as an outpatient but his symptoms got worse and felt very short of breath and abdominal distention which made him to come to ER. Patient says that he was diagnosed with pancreatic cancer and possible metastasis sometime in August 2017. Patient was seen at [facility] recently where he had CT of the abdominal pelvis and colonoscopy was attempted but could not be passed beyond sigmoid colon. Patient was seen at [facility] where he underwent explored laparotomy and colon resection due to stricture by Dr. Mohan and was told that he has pancreatic cancer as per the family. Patient had biopsy which showed poorly differentiated adenocarcinoma. [place] to be suggestive of upper GI, pancreatic to biliary origen. Less likely pulmonary primary. Patient does have weight loss. Patient otherwise denied any complaints of cough or sputum production. No fever no chills. Patient does have nausea and abdominal distention. Patient does have diarrhea on and off. Denied any dysuria. No chest pain. No headache or dizziness. Chest x-ray showed hypoventilatory changes with basilar densities likely representing atelectasis. Otherwise no definite acute process. CT abdomen and pelvis showed massive ascites. Small pleural effusion with basilar pulmonary atelectasis. Atrophy of the tail of the pancreas. No pancreatic mass has been identified. 11/24/2017 Patient denied complaints of chest pain or shortness of breath. Patient underwent EGD and biopsy today. IMPRESSION: 1. Deformed, tortuous stomach and duodenum likely from external compression from patient's metastatic tumor burden, however no evidence of malignancy in esophagus, stomach or small bowel. 2. Gastritis, biopsied. Duodenal biopsies. 3. Irregular Z line at 41 cm from the incisors without evidence of malignancy, biopsied. 4. Small hiatal hernia. No other acute overnight issues. Objective - Vital Signs Vital signs: Vital Signs Temp 98.2 F 11/24/17 04:30 Pulse 62 11/24/17 08:00 Resp 16 11/24/17 08:00 BP 98/54 11/24/17 04:30 Pulse Ox 98 11/24/17 04:30 Intake & Output 11/23/17 11/24/17 11/24/17 18:59 06:59 18:59 Intake Total 600 300 350 Balance 600 300 350 Weight 56.699 kg 56.699 kg 56.699 kg Intake: IV 350 Intake, IV Titration 600 Amount Lactated Ringers 1,000 ml 600 @ 75 mls/hr IV .[id number] [facility] Rx#:[id number] Oral 300 Other: Voiding Method Toilet Toilet Toilet # Voids 1 1 - Exam PHYSICAL EXAMINATION: Patient is lying in the bed comfortably, no acute distress, awake alert and oriented.. HEENT: Normocephalic. Neck is supple. Pupils reactive. Nostrils clear. Oral cavity is moist. Ears reveal no drainage. Neck reveals no JVD, carotid bruits, or thyromegaly. CHEST EXAMINATION: Trachea is central. Symmetrical expansion. Lung bell clear to auscultation and percussion. CARDIAC: Normal S1, S2 with no gallops. No murmurs ABDOMEN: Soft. Bowel sounds normal. No organomegaly. No abdominal bruits. Extremities: reveal no edema. No clubbing or cyanosis Neurologically awake, alert, oriented x3 with well-coordinated movements. No focal deficits noted Skin: No rash or skin lesions. Psychiatric: Coperative. Nonsuicidal Musculoskeletal: No joint swelling or deformity. Normal range of motion. - Labs CBC & Chem 7: 11/23/17 06:53 11/23/17 06:53 Labs: Abnormal Lab Results - Last 24 Hours (Table) 11/23/17 11/24/17 Range/Units 06:53 06:57 POC Glucose (mg/dL) 103 H (75-99) mg/dL Iron 42 L (65-175) ug/dL TIBC 221 L (228-460) ug/dL Vitamin B12 1289.0 H (200.0-944.0) pg/mL Microbiology - Last 24 Hours (Table) 11/23/17 15:25 Gram Stain - Preliminary Paracentesis Fluid Body Fluid Culture - Preliminary 11/23/17 15:25 Anaerobic Culture - Preliminary Ascites Fluid 11/22/17 15:09 Blood Culture - Preliminary Blood No Growth after 24 hours Assessment and Plan Assessment: Adenocarcinoma of gastrointestinal origin as per recent laparotomy and biopsy. Status post EGD and awaiting pathology. Severe ascites status post paracentesis. Follow up fluid cytology. Possible malignant ascites Mild protein calorie malnutrition Normocytic anemia DVT prophylaxis Plan: Patient did underwent paracentesis with 4.9 L fluid removal. We will follow up fluid cytology, culture and cell count with differential. Repeat CEA and CA 19 was ordered. Oncology is following. Continue with symptomatic management otherwise. EGD with biopsies being planned. Further recommendations based on the clinical course. Time with Patient: Greater than 30
[2017-11-25 06:10] VITALS: BP 114/56; PULSE 57; RESP 16; TEMP 98.3
[2017-11-25 06:57] LABS: Glucose,Whole Blood 99 mg/dL (75-99)
[2017-11-25] MEDS: PANTOPRAZOLE 40 MG/10 ML VIAL IV SCH (08:41)
[2017-11-25] MEDS: NYSTATIN 100,000 UNIT/ML SUSP 500,000 UNIT/5 ML CUP PO SCH (08:41)
--- NOTE | 2017-11-25 11:36 | P.DS ---
Providers Date of admission: 11/22/17 17:09 Expected date of discharge: 11/25/17 Attending physician: Bill Comer Consults: 11/22/17 17:09 Consult Physician Routine Consulting Provider: Sahil Metcalf Consult Reason/Comments: Pancreatic CA and ascites Do you want consulting provider notified?: Yes 11/22/17 17:11 Consult Physician Routine Consulting Provider: Samuel Pearson Consult Reason/Comments: Upper GI bleed Do you want consulting provider notified?: Yes Primary care physician: Reanna Nelson [facility] Course: Final diagnoses Adenocarcinoma of gastrointestinal origin as per recent laparotomy and biopsy. Status post EGD and awaiting pathology. Severe ascites status post paracentesis. Follow up fluid cytology. Possible malignant ascites Mild protein calorie malnutrition Normocytic anemia Hospital COurse:Ascites Adenocarcinoma of the GI tract Patient is a 62-year-old male came to ER with complaints of abdominal pain, shortness of breath and weakness. Patient is supposed to follow up with Dr. James as an outpatient but his symptoms got worse and felt very short of breath and abdominal distention which made him to come to ER. Patient says that he was diagnosed with pancreatic cancer and possible metastasis sometime in August 2017. Patient was seen at [facility] recently where he had CT of the abdominal pelvis and colonoscopy was attempted but could not be passed beyond sigmoid colon. Patient was seen at [facility] where he underwent explored laparotomy and colon resection due to stricture by Dr. Mohan and was told that he has pancreatic cancer as per the family. Patient had biopsy which showed poorly differentiated adenocarcinoma. [place] to be suggestive of upper GI, pancreatic to biliary origen. Less likely pulmonary primary. Patient does have weight loss. Patient otherwise denied any complaints of cough or sputum production. No fever no chills. Patient does have nausea and abdominal distention. Patient does have diarrhea on and off. Denied any dysuria. No chest pain. No headache or dizziness. Chest x-ray showed hypoventilatory changes with basilar densities likely representing atelectasis. Otherwise no definite acute process. CT abdomen and pelvis showed massive ascites. Small pleural effusion with basilar pulmonary atelectasis. Atrophy of the tail of the pancreas. No pancreatic mass has been identified. Evaluated by GI and ONcology. Patient underwent EGD and biopsy. IMPRESSION: 1. Deformed, tortuous stomach and duodenum likely from external compression from patient's metastatic tumor burden, however no evidence of malignancy in esophagus, stomach or small bowel. 2. Gastritis, biopsied. Duodenal biopsies. 3. Irregular Z line at 41 cm from the incisors without evidence of malignancy, biopsied. 4. Small hiatal hernia. Underwent paracentesis with 4.9 L fluid removal. Fluid cytology, culture and cell count with differentia pending. Significant clinical improvement, cleared by all consults for discharge. Patient is being discharged home in a stable condition with guarded prognosis. The impression and plan of care has been dictated as directed. : I performed a history and examination of this patient, discussed the same with the dictator. I agree with the dictator's note ,documented as a scribe. Any additional findings or plans will be noted. Time taken: 35 minutes Patient Condition at Discharge: Stable Plan - Discharge Summary Discharge Rx Participant: No New Discharge Prescriptions: New Nystatin 100,000 Unit/ml Susp [Mycostatin Oral Susp] 500,000 unit PO QID 5 Days #100 ml Pantoprazole Sodium [Protonix] 40 mg PO BID #60 tablet.dr Gruber [place] 1 tab PO DAILY Ascorbic Acid [Vitamin C] 1,000 mg PO DAILY Vitamin E Acetate [Vitamin E] 200 unit PO DAILY Vitamin A 8,000 unit PO DAILY Cholecalciferol [Vitamin D3] 1,000 unit PO DAILY Ubidecarenone [Co Q-10] 100 mg PO DAILY Echinacea 400 mg PO DAILY Discharge Medication List Ascorbic Acid [Vitamin C] 1,000 mg PO DAILY 11/23/17 [History] Cholecalciferol [Vitamin D3] 1,000 unit PO DAILY 11/23/17 [History] Echinacea 400 mg PO DAILY 11/23/17 [History] [place] [place] 1 tab PO DAILY 11/23/17 [History] Ubidecarenone [Co Q-10] 100 mg PO DAILY 11/23/17 [History] Vitamin A 8,000 unit PO DAILY 11/23/17 [History] Vitamin E Acetate [Vitamin E] 200 unit PO DAILY 11/23/17 [History] Nystatin 100,000 Unit/ml Susp [Mycostatin Oral Susp] 500,000 unit PO QID 5 Days #100 ml 11/24/17 [Rx] Pantoprazole Sodium [Protonix] 40 mg PO BID #60 tablet. 11/25/17 [Rx] Follow up Appointment(s)/Referral(s): Nicolas Pelletier MD [STAFF PHYSICIAN] - 12/01/17 1:15 pm Reanna Nelson MD [Primary Care Provider] - 12/01/17 8:45 am Samuel Pearson MD [STAFF PHYSICIAN] - 12/17/17 4:30 pm Ambulatory/Diagnostic Orders: Complete Blood Count w/diff [LAB.AMB] Time Frame: 3 Days, Location: None Selected Patient Instructions/Handouts: Nystatin (By mouth), Pantoprazole (By mouth), Ascites (DC) Discharge Disposition: HOME SELF-CARE
[2017-11-25 11:45] LABS: Glucose,Whole Blood 153 mg/dL (75-99)
--- NOTE | 2017-11-25 13:46 | P.PN ---
Subjective Progress Note Date: 11/25/17 Principal diagnosis: Metastatic Adenocarcinoma with ascites Esequiel is status post EGD and Paracentesis (5Liters removed). Patient is feeling better since paracentesis although starting to already feel the pressure in abdomen again. He is now open to know his treatment options. The EGD did not reveal any apparent primary etiology. Objective - Vital Signs Vital signs: Vital Signs Temp 98.3 F 11/25/17 05:00 Pulse 57 L 11/25/17 05:00 Resp 16 11/25/17 05:00 BP 114/56 11/25/17 05:00 Pulse Ox 98 11/25/17 05:00 Intake & Output 11/24/17 11/25/17 11/25/17 18:59 06:59 18:59 Intake Total 590 600 Balance 590 600 Weight 56.699 kg 59.7 kg Intake: IV 350 Intake, IV Titration 600 Amount Lactated Ringers 1,000 ml 600 @ 75 mls/hr IV .[id number] [facility] Rx#:[id number] Oral 240 Other: Voiding Method Toilet Toilet # Voids 1 1 - Exam eneral - Cachexia, Pale, Chronically ill appearing Head - NC, NT Neck - Supple, Trachea Midline Lungs - Diminished Biolateral Bases, No crackles or Wheezes or increased effort noted Abdomen - Firm, Distended, Bowel Sounds presnt x4 Extremities - Evidenced muscular Atrophy in all 4 extremitys, Positive pulses Neurological - No Neurological defects noted Mood is cooperative although anxious. - Labs CBC & Chem 7: 11/23/17 06:53 11/23/17 06:53 Labs: Abnormal Lab Results - Last 24 Hours (Table) 11/24/17 11/25/17 Range/Units 22:17 11:44 POC Glucose (mg/dL) 119 H 153 H (75-99) mg/dL Microbiology - Last 24 Hours (Table) 11/23/17 15:25 Gram Stain - Preliminary Paracentesis Fluid Body Fluid Culture - Preliminary 11/22/17 15:09 Blood Culture - Preliminary Blood No Growth after 48 hours Assessment and Plan Plan: Assessment and Recommendations: 1. 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 - Patient was diagnosed in August 2017, he chose to forgo standardized treatment and seek his own holistic approach. Over the past two months it appears he has not improved, and overall condition has worsened. He now is presenting for further evaluation and recommendations. - Recommend an EGD to rule out upper GI Esophageal primary versus heaptobiliary or Gastric Primary - He is hesitant to hear any options related to chemotherapy or evidence based recommendations. If he chooses to consider treatment an EGD is recommended. - Will also send tissue for further testing for MSI - Baseline CEA and Ca19-9 negative, will recheck this hospitalization. - Recent PET scan 11/16/17 was reviewed and shows increased uptake through [employer]ophagg[employer] towards GE Junctions, if EGD reveals likely primary of GE junction could test HER2, and provide options of other therapy - Await pathology from EGD - FOllow-up in office next week with Dr. Pelletier 2. Abdominal Ascites and Discomfort: - Paracentesis both Diagnostic and Therapeutic Ordered - Await Fluid Cytology Ok for discharge from oncology standpoint. I have set him up for outpatient paracentesis next week. He will see Dr. Pelletier at this time to review paracentesis fluid and EGD biopsy results, and determine the likely source of his cancer to proceed with his treatment options. - His tissue from original biopsy has been sent for MSI, HER2, and PDL1
== END 2017-11-25 13:00 | disposition home or self-care (01) | DRG 375 ==
LOC: EC 14:21 → 5MS5E 17:09
PROVIDERS: ADMIT Internal Medicine; ATTEND Internal Medicine
PROC: 0W9G3ZZ Drainage of Peritoneal Cavity, Percutaneous Approach (ICD-10-PCS; principal; 2017-11-23)
PROC: 0DB98ZX Excision of Duodenum, Via Natural or Artificial Opening Endoscopic, Diagnostic (ICD-10-PCS; 2017-11-24)
PROC: 0DB68ZX Excision of Stomach, Via Natural or Artificial Opening Endoscopic, Diagnostic (ICD-10-PCS; 2017-11-24)
DX: C26.9 Malignant neoplasm of ill-defined sites within the digestive system (principal); J91.0 Malignant pleural effusion; E44.1 Mild protein-calorie malnutrition; K56.609 Unspecified intestinal obstruction, unspecified as to partial versus complete obstruction; K92.0 Hematemesis; J98.11 Atelectasis; R64 Cachexia; K44.9 Diaphragmatic hernia without obstruction or gangrene; Z68.20 Body mass index [BMI] 20.0-20.9, adult; K29.70 Gastritis, unspecified, without bleeding; D64.9 Anemia, unspecified; I45.10 Unspecified right bundle-branch block; Z91.19 Patient's noncompliance with other medical treatment and regimen; Z79.899 Other long term (current) drug therapy; Z87.891 Personal history of nicotine dependence
CPT/HCPCS: 36415; 43239; 49083; 71046; 74177; 80048; 80076; 82042; 82378; 82607; 82652; 82728; 82746; 83540; 83550; 83690; 83735; 84157; 84484; 85025; 85045; 85610; 86301; 87040; 87070; 87075; 87205; 88108; 88305; 88313; 88341; 88342; 89050; 93005; 96361; 96374; 96375; 96376; 99285

== ENCOUNTER → 2018-01-07 | Outpatient (CLI) | payer OTHER ==
[2018-01-07 07:23] LABS: Blood Urea Nitrogen 13 mg/dL (9-20)
--- NOTE | 2018-01-07 08:42 | CT ---
EXAMINATION TYPE: CT chest wo con DATE OF EXAM: 01/07/2018 COMPARISON: NONE HISTORY: cancer of unknown primary. CT DLP: 142.60 mGycm. Automated Exposure Control for Dose Reduction was Utilized. TECHNIQUE: CT scan of the thorax is performed without IV contrast. FINDINGS: LUNGS: There is 5 mm nodule anterior right midlung axial image 35 favoring benign intraparotid lymph node is appears to align along fissure on coronal images there is 5 x 4 mm subpleural nodule right lo wer lobe axial image 44. There is bibasilar linear scarring and/or atelectasis near the diaphragms. N o pleural effusion or pneumothorax is seen bilaterally. Tracheobronchial tree is patent. MEDIASTINUM: Lack of IV contrast is noted to limit evaluation for mediastinal and especially hilar ad enopathy. There are no definitive greater than 1 cm hilar or mediastinal lymph nodes. A few prominent but subcentimeter lymph nodes are seen in the paratracheal region and AP window for reference axial image 23 9 x 8 mm lymph node is noted. No cardiomegaly or pericardial effusion is seen. Ascending a avinash measures up to 3.7 cm in diameter axial image 31. Adjacent main pulmonary artery measures 2.9 cm in diameter. Moderate to severe 3 vessel Coronary artery calcification is present which is noted mar ker for coronary artery disease. OTHER: There is partial visualization of known ascites in the abdomen. There is moderate multilevel s purring in visualized thoracic spine. IMPRESSION: Few scattered small nonspecific right lung nodules. No obvious mass or adenopathy.
== END ==
LOC: RADCTMAIN 06:48
PROVIDERS: ATTEND Internal Medicine Hematology & Oncology
DX: R91.8 Other nonspecific abnormal finding of lung field (principal)
CPT/HCPCS: 71250; 82565; 84520

== ENCOUNTER → 2018-03-24 | Outpatient (CLI) | payer OTHER ==
--- NOTE | 2018-03-24 14:05 | CT ---
EXAMINATION TYPE: CT ChestAbdPelvis w con DATE OF EXAM: 03/24/2018 COMPARISON: 01/07/2018 chest 11/22/2017 abdomen pelvis HISTORY: 63-year-old male follow-up cancer of unknown primary. TECHNIQUE: Contiguous axial scanning of the chest, abdomen, and pelvis performed with IV Contrast, pa tient injected with 100 mL of Isovue 300. Delayed images through the kidneys were obtained. Coronal/s agittal reconstructions performed. CT DLP: 893 mGycm Automated exposure control for dose reduction was used. FINDINGS: Chest: Heart normal size without pericardial effusion. Coronary vessel calcifications are present. Mild ectasia upper descending thoracic aorta at 3.0 cm. Conventional arch vessel branching anatomy. A few nonenlarged mediastinal lymph nodes are demonstrated. No thoracic lymphadenopathy by CT size cr iteria. Band of atelectasis or scarring left greater than right lung bases. Mild emphysematous change. Stable 4 to 5 mm pulmonary nodules (3 in number) posterior right midlung. 2 stable pulmonary nodules measuring up to 4 mm in the anterior right midlung. Stable 5 mm subpleural pulmonary nodule posterior right base. No consolidation or pleural effusion. ABDOMEN: Small hiatal hernia. Liver measures normal size at 15.4 cm. No evident focal lesion. Dense sludge within a nondistended gallbladder. Portal venous system is patent. No biliary ductal dil atation seen. A prominent 1.5 cm portacaval lymph node is unchanged and measures at the upper limits of normal in s ize. There is very subtle area of hypodensity measuring 1.1 cm in the pancreatic head region question ably seen on the patient's prior exam, axial image 41 in retrospect. No dominant pancreatic lesion is clearly identified. Atrophy of the pancreatic tail is redemonstrated. Adrenal glands, kidneys, and arterial phase mild enhancement of the spleen is within normal limits. Multiple fluid-filled small bowel loops throughout showing borderline dilatation measuring up to 2.8 cm, refer to coronal image 33 with some loops suggesting diffuse fold thickening as well. Scattered nonenlarged and borderline sized mesenteric lymph nodes measuring up to 6 cm, for example, coronal image 28. There is residual mild to moderate abdominopelvic ascites, significantly improved from 11/22/2017. Prominent liquid stool in the right side of the colon Possible focal wall thickening along the left lateral wall of the gastric fundus/body, axial image 55 and coronal image 40. This was not appreciated on the patient's 11/22/2017 study. Moderate atherosclerotic calcifications infrarenal abdominal aorta and iliac arteries without aneurys m. Pelvis: Bladder partially distended. Apparent wall thickening may relate to incomplete distention. Prostate g land measures 4.2 cm wide. Mild to moderate pelvic ascites. The ascites fluid limits assessment makin g delineation with any potential lymph nodes difficult. Possible wall thickening encompassing the dis berry sigmoid and rectum. Bones: Degenerative changes mid to lower lumbar spine. No osseous destructive process. IMPRESSION: 1. 5 MM AND SMALLER PULMONARY NODULES ARE NONSPECIFIC AND UNCHANGED FROM 01/07/2018. 2. POSSIBLE VERY SUBTLE 1.1 CM HYPODENSE LESION IN THE PANCREATIC HEAD. QUESTIONABLY SEEN IN RETROSPE CT ON THE 11/22/2017 EXAM, AXIAL IMAGE 41. 3. NEW FOCAL THICKENING ALONG THE LEFT LATERAL WALL OF THE GASTRIC BODY/FUNDUS. GASTRIC WALL NEOPLASM NOT EXCLUDED. IF INDICATED, CONSIDER ENDOSCOPIC EVALUATION. 4. MULTIPLE FLUID-FILLED, BORDERLINE DISTENDED SMALL BOWEL LOOPS THROUGHOUT SHOWING FOLD THICKENING. SOME CIRCUMFERENTIAL WALL THICKENING ALONG THE DISTAL SIGMOID AND RECTUM AND LIQUID STOOL IN THE RIGH T SIDE OF THE COLON WELL. CORRELATE FOR POSSIBLE ENTEROCOLITIS. 5. RESIDUAL MILD TO MODERATE ABDOMINOPELVIC ASCITES, PARTIALLY IMPROVED FROM 11/22/2017. 6. WALL THICKENING OF THE BLADDER WHICH COULD BE DUE TO UNDERDISTENTION, CHRONIC BLADDER WALL HYPERTR OPHY, OR CYSTITIS.
== END | disposition home or self-care (01) ==
LOC: RADCTMAIN 12:00
PROVIDERS: ATTEND Internal Medicine Hematology & Oncology
DX: K31.89 Other diseases of stomach and duodenum (principal); R91.8 Other nonspecific abnormal finding of lung field; R18.8 Other ascites; R93.3 Abnormal findings on diagnostic imaging of other parts of digestive tract; C80.0 Disseminated malignant neoplasm, unspecified
CPT/HCPCS: 71260; 74177; Q9967

== ENCOUNTER 2018-05-02 09:34 | Day surgery (SDC) | payer OTHER ==
[2018-05-02 10:05] VITALS: TEMP 97.8
[2018-05-02 10:11] LABS: Mean Platelet Volume 7.4; Platelet Count 390 k/uL (150-450)
[2018-05-02 10:15] LABS: Prothrombin Time 10.5 sec (9.0-12.0)
[2018-05-02] MEDS: ALBUMIN HUMAN 25% 50 ML in EMPTY BAG 1 BAG IVPB SCH ×3 (10:58→11:31)
--- NOTE | 2018-05-02 13:22 | US ---
Therapeutic paracentesis. DATE OF EXAM: 05/02/2018 CLINICAL HISTORY: Ascites The procedure was discussed with the patient. The risks, complications, benefits, and alternatives we re discussed and any questions were answered. Informed consent was obtained. The patient was placed s upine on the ultrasound table and prepped and draped in the usual sterile fashion. All elements of maximal barrier technique were utilized. Under ultrasound guidance, access into the right lower quadrant was obtained, via the paracentesis catheter system and direct ultrasound guidanc e. Approximately 2.9 liters of straw-colored fluid was removed. The patient was stable throughout the pr ocedure and remained stable upon discharge from Department of Radiology. IMPRESSION: Successful therapeutic paracentesis under ultrasound guidance.
[2018-05-02 13:57] VITALS: BP 114/70; PULSE 94; RESP 18
== END 2018-05-02 13:20 | disposition other institution (70) ==
LOC: RADPROMAIN 09:34
PROVIDERS: ATTEND Internal Medicine Hematology & Oncology
DX: R18.8 Other ascites (principal)
CPT/HCPCS: 82565; 85049; 85610; 49083; P9047; J1642

== ENCOUNTER 2018-05-02 13:45 | Inpatient (IN) | payer OTHER ==
[2018-05-02] MEDS ORDERED: ONDANSETRON 4 MG/2 ML VIAL IVP STA (14:20)
[2018-05-02] MEDS ORDERED: SODIUM CHLORIDE 0.9% 500 ML 500 ML IV STA (14:20)
[2018-05-02] MEDS ORDERED: MORPHINE SULFATE 4 MG/ML SYRINGE IVP STA (14:20)
[2018-05-02] MEDS ORDERED: MORPHINE SULFATE 4 MG/ML SYRINGE IV STA (14:20)
--- NOTE | 2018-05-02 14:40 | ED ---
General Adult HPI - General Chief complaint: Abdominal Pain Stated complaint: Pain all over Time Seen by Provider: 05/02/18 14:03 Source: patient, Caregiver Mode of arrival: wheelchair Limitations: no limitations - History of Present Illness Initial comments: Dictation was produced using [employer] dictation software. please excuse any grammatical, word or spelling errors. Chief Complaint: 63-year-old male with abdominal pain and abnormal abdominal contour status post paracentesis. History of Present Illness: Patient is 63-year-old male. Patient states that he has abdominal pain, nausea and vomiting after paracentesis. Patient's history umbilical and right inguinal hernia repair. It paracentesis performed for cancer workup. Patient is not aware of any definitive cancer diagnoses at the moment. Currently being worked up. Patient states he had a paracentesis performed today. Chart review shows that patient had successful paracentesis without any complications. After the procedure patient began having severe symptoms of the emergency department. The ROS documented in this emergency department record has been reviewed and confirmed by me. Those systems with pertinent positive or negative responses have been documented in the HPI. All other systems are other negative and/or noncontributory. PHYSICAL EXAM: General Impression: Alert and oriented x3, acute distress secondary to pain. HEENT: Normocephalic atraumatic, extra-ocular movements intact, pupils equal and reactive to light bilaterally, mucous membranes moist. Cardiovascular: Heart regular rate and rhythm, S1&S2 audible, no murmurs, rubs or gallops Chest: Lungs clear to auscultation bilaterally, no rhonchi, no wheeze, no rales Abdomen: Abnormal serpiginous contour to the anterior abdomen. Musculoskeletal: Pulses present and equal in all extremities, no peripheral edema Motor: Power 5/5 bilaterally, no focal deficits noted Neurological: CN II-XII grossly intact, no focal motor or sensory deficits noted Skin: Intact with no visualized rashes ED course: 63-year-old male presents with abdominal symptoms status post paracentesis. Signs upon arrival are within acceptable limits. Patient is in acute distress secondary to abdominal pain. Rapid bedside point of care ultrasound was performed showing abdominal contents. No overt signs of hernia. Laboratory evaluation obtained. No leukocytosis. CBC is unremarkable. Metabolic panel grossly unremarkable. Urinalysis is negative. Patient is given IV analgesics with improvement of symptoms. Given abnormal contours of the abdomen with feculent CT was obtained. There is multiple loops of dilated bowel. Findings are consistent with early complete small bowel obstruction versus partial small bowel obstruction. Patient has history of this in the past. He was seen in another facility where they recommended invasive procedure however patient did not consent to it. Discussed patient case with our general surgeon who is willing to accept the patient for admission. He request patient given antibiotics. He will likely benefit from nasogastric tube placement if he has worsening symptoms. - Related Data Home Medications Medication Instructions Recorded Confirmed Ascorbic Acid [Vitamin C] 1,000 mg PO DAILY 11/23/17 05/02/18 Cholecalciferol [Vitamin D3] 1,000 unit PO DAILY 11/23/17 05/02/18 [place] 1 tab PO DAILY 11/23/17 05/02/18 Vitamin E Acetate [Vitamin E] 200 unit PO DAILY 11/23/17 05/02/18 ALPRAZolam [Xanax] 0.5 mg PO TID PRN 05/02/18 05/02/18 Morphine Sulfate 15 mg PO Q6H 05/02/18 05/02/18 Morphine Sulfate ER [Ms Contin] 15 mg PO Q12HR 05/02/18 05/02/18 Allergies Allergy/AdvReac Type Severity Reaction Status Date / Time No Known Allergies Allergy Verified 05/02/18 13:58 Review of Systems ROS Statement: Those systems with pertinent positive or pertinent negative responses have been documented in the HPI. ROS Other: All systems not noted in ROS Statement are negative. 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 pancreatic cancer History of Any Multi-Drug Resistant Organisms: None Reported Past Surgical History: Hernia Repair Additional Past Surgical History / Comment(s): UMBILICAL HERNIA (1996), RIGHT INGUINAL HERNIA (2010). paracentesis Past Anesthesia/Blood Transfusion Reactions: No Reported Reaction Past Psychological History: Anxiety Smoking Status: Former smoker Past Alcohol Use History: None Reported Past Drug Use History: Marijuana - Past Family History Mother Family Medical History: Cancer Father Additional Family Medical History / Comment(s): "heart dsease" General Exam Limitations: no limitations Course Vital Signs 05/02/18 05/02/18 05/02/18 13:50 15:04 15:57 Temperature 98.2 F Pulse Rate 88 86 86 Respiratory 18 16 18 Rate Blood Pressure 135/85 112/60 122/77 O2 Sat by Pulse 97 100 96 Oximetry Medical Decision Making - Lab Data Result diagrams: 05/02/18 16:30 05/02/18 14:20 Lab Results 05/02/18 05/02/18 05/02/18 Range/Units 14:20 14:20 14:20 WBC (3.8-10.6) k/uL RBC (4.30-5.90) m/uL Hgb (13.0-17.5) gm/dL Hct (39.0-53.0) % MCV (80.0-100.0) fL MCH (25.0-35.0) pg MCHC (31.0-37.0) g/dL RDW (11.5-15.5) % Plt Count (150-450) k/uL Neutrophils % % Lymphocytes % % Monocytes % % Eosinophils % % Basophils % % Neutrophils # (1.3-7.7) k/uL Lymphocytes # (1.0-4.8) k/uL Monocytes # (0-1.0) k/uL Eosinophils # (0-0.7) k/uL Basophils # (0-0.2) k/uL Sodium 136 L (137-145) mmol/L Potassium 3.7 (3.5-5.1) mmol/L Chloride 96 L (98-107) mmol/L Carbon Dioxide 32 H (22-30) mmol/L Anion Gap 8 mmol/L BUN 35 H (9-20) mg/dL Creatinine 0.74 (0.66-1.25) mg/dL Est GFR (CKD-EPI)AfAm >90 (>60 ml/min/1.73 sqM) Est GFR (CKD-EPI)NonAf >90 (>60 ml/min/1.73 sqM) Glucose 110 H (74-99) mg/dL Plasma Lactic Acid Ravi (0.7-2.0) mmol/L Calcium 8.9 (8.4-10.2) mg/dL Total Bilirubin 0.8 (0.2-1.3) mg/dL AST 71 H (17-59) U/L ALT 28 (21-72) U/L Alkaline Phosphatase 166 H (38-126) U/L Total Protein 6.2 L (6.3-8.2) g/dL Albumin 3.4 L (3.5-5.0) g/dL Urine Color Light Yellow Urine Appearance Clear (Clear) Urine pH 5.5 (5.0-8.0) Ur Specific [place] 1.007 (1.001-1.035) Urine Protein Negative (Negative) Urine Glucose (UA) Negative (Negative) Urine Ketones Trace H (Negative) Urine Blood Negative (Negative) Urine Nitrite Negative (Negative) Urine Bilirubin Negative (Negative) Urine Urobilinogen <2.0 (<2.0) mg/dL Ur Leukocyte Esterase Negative (Negative) Blood Type A Positive Blood Type Recheck CABO Indicated Antibody Screen NEGATIVE Spec Expiration Date 05/05/2018231905/02/18 05/02/18 Range/Units 15:19 16:30 WBC 4.8 (3.8-10.6) k/uL RBC 3.42 L (4.30-5.90) m/uL Hgb 10.4 L (13.0-17.5) gm/dL Hct 32.4 L (39.0-53.0) % MCV 94.8 (80.0-100.0) fL MCH 30.5 (25.0-35.0) pg MCHC 32.1 (31.0-37.0) g/dL RDW 14.0 (11.5-15.5) % Plt Count 343 (150-450) k/uL Neutrophils % 61 % Lymphocytes % 23 % Monocytes % 12 % Eosinophils % 1 % Basophils % 0 % Neutrophils # 2.9 (1.3-7.7) k/uL Lymphocytes # 1.1 (1.0-4.8) k/uL Monocytes # 0.6 (0-1.0) k/uL Eosinophils # 0.0 (0-0.7) k/uL Basophils # 0.0 (0-0.2) k/uL Sodium (137-145) mmol/L Potassium (3.5-5.1) mmol/L Chloride (98-107) mmol/L Carbon Dioxide (22-30) mmol/L Anion Gap mmol/L BUN (9-20) mg/dL Creatinine (0.66-1.25) mg/dL Est GFR (CKD-EPI)AfAm (>60 ml/min/1.73 sqM) Est GFR (CKD-EPI)NonAf (>60 ml/min/1.73 sqM) Glucose (74-99) mg/dL Plasma Lactic Acid Ravi 1.0 (0.7-2.0) mmol/L Calcium (8.4-10.2) mg/dL Total Bilirubin (0.2-1.3) mg/dL AST (17-59) U/L ALT (21-72) U/L Alkaline Phosphatase (38-126) U/L Total Protein (6.3-8.2) g/dL Albumin (3.5-5.0) g/dL Urine Color Urine Appearance (Clear) Urine pH (5.0-8.0) Ur Specific [place] (1.001-1.035) Urine Protein (Negative) Urine Glucose (UA) (Negative) Urine Ketones (Negative) Urine Blood (Negative) Urine Nitrite (Negative) Urine Bilirubin (Negative) Urine Urobilinogen (<2.0) mg/dL Ur Leukocyte Esterase (Negative) Blood Type Blood Type Recheck Antibody Screen Spec Expiration Date Disposition Clinical Impression: SBO (small bowel obstruction) Disposition: ADMITTED IP TO THIS HOSP Condition: Fair Is patient prescribed a controlled substance at d/c from ED?: No Referrals: Reanna Nelson MD [Primary Care Provider] - 1-2 days Decision Time: 17:37
--- NOTE | 2018-05-02 15:00 | CT ---
EXAMINATION TYPE: CT abdomen pelvis wo con DATE OF EXAM: 05/02/2018 COMPARISON: 03/24/2018 HISTORY: Abdominal pain and distention CT DLP: 327.7 mGycm Automated exposure control for dose reduction was used. TECHNIQUE: Helical acquisition of images was performed from the lung bases through the pelvis. FINDINGS: Lack of intravenous contrast and oral contrast limit evaluation of the abdomen and pelvis a s does diffuse anasarca. LUNG BASES: There is a new partially visualized small left pleural effusion and trace right pleural e ffusion. New left basilar pulmonary nodule with peripheral spiculation is seen on image 1 of series 2 04 measuring 7 mm in length. The previously seen pulmonary nodules on the exam of 03/24/2018 are not visualized within the [id number] in the lower lobes although the right middle lobe pulmonary nodul e is redemonstrated on image 3. Bibasilar subsegmental atelectasis is noted. LIVER/GB: The gallbladder is filled with either biliary sludge or multiple small calculi. Liver is gr ossly unremarkable in its unenhanced morphology. PANCREAS: Suboptimally evaluated although no discrete evidence of pancreatic ductal dilatation is see n. SPLEEN: Splenic arterial calcifications are seen. Spleen is grossly unremarkable. ADRENALS: No significant abnormality is seen. KIDNEYS: There are punctate nonobstructing renal calculi seen bilaterally (2 on the left and 2 on the right). No evidence of hydronephrosis. Right extrarenal pelvis is noted. FREE AIR: No free air is visualized REPRODUCTIVE ORGANS: Prostate gland is heterogenous containing central zone calcifications. URINARY BLADDER: No significant abnormality is seen. OSSEOUS STRUCTURES: No significant abnormality is seen. Multilevel degenerative disc disease of the spine. BOWEL: There are multiple loops of dilated bowel bowel containing air-fluid levels. Colonic prominen ce is seen measuring up to 4.6 cm with moderate amount retained colonic stool throughout. Small bowel measures up to 4.7 cm within the right upper quadrant. No distinct transition point is identified. OTHER: Extensive atherosclerosis is present of the abdominal aorta and its branches. Moderate ascites is seen although this blends with few loops of dilated bowel and therefore paracentesis may be diffi cult to safely perform. IMPRESSION: 1. MULTIPLE LOOPS OF DILATED SMALL BOWEL CONTAINING AIR-FLUID LEVELS. NO DISCRETE TRANSITION POINT IS IDENTIFIED GIVEN LACK OF ORAL CONTRAST, ANASARCA, LACK OF INTRA-ABDOMINAL FAT, AND MODERATE DEGREE O F ABDOMINAL ASCITES LIMITING EVALUATION. SUSPICION IS FOR EARLY COMPLETE SMALL BOWEL OBSTRUCTION OR P ARTIAL SMALL BOWEL OBSTRUCTION. 2. NEW SMALL LEFT PLEURAL EFFUSION AND TRACE RIGHT PLEURAL EFFUSION.
[2018-05-02] MEDS ORDERED: HYDROmorphone 1 MG/ML 1 ML SYRINGE IVP STA (15:16)
[2018-05-02 16:13] LABS: ALT 28 U/L (21-72); AST 71 U/L (17-59); Albumin 3.4 g/dL (3.5-5.0); Alkaline Phosphatase 166 U/L (38-126); Anion Gap 8 mmol/L; Blood Urea Nitrogen 35 mg/dL (9-20); Calcium 8.9 mg/dL (8.4-10.2); Carbon Dioxide 32 mmol/L (22-30); Chloride 96 mmol/L (98-107); Glucose 110 mg/dL (74-99); Potassium 3.7 mmol/L (3.5-5.1); Sodium 136 mmol/L (137-145); Total Bilirubin 0.8 mg/dL (0.2-1.3); Total Protein 6.2 g/dL (6.3-8.2)
[2018-05-02 16:15] LABS: Appearance,Urine Clear (Clear); Bilirubin,Urine Negative (Negative); Blood,Urine Negative (Negative); Color,Urine Light Yellow; Glucose,Urine (UA) Negative (Negative); Ketones,Urine Trace (Negative); Leukocyte Esterase,Urine Negative (Negative); Nitrite,Urine Negative (Negative); PH, Urine 5.5 (5.0-8.0); Protein,Urine Negative (Negative); Specific Gravity,Urine 1.007 (1.001-1.035); Urobilinogen,Urine <2.0 mg/dL (<2.0)
[2018-05-02] MEDS ORDERED: PIPERACILLIN-TAZOBACTAM 3.375 GM in SODIUM CHLORIDE 0.9% 100 ML IVPB STA (17:06)
[2018-05-02 17:13] LABS: Basophils % (A) 0 %; Eosinophils % (A) 1 %; HCT 32.4 % (39.0-53.0); HGB 10.4 gm/dL (13.0-17.5); Lymphocytes # (A) 1.1 k/uL (1.0-4.8); Lymphocytes % (A) 23 %; MCH 30.5 pg (25.0-35.0); MCHC 32.1 g/dL (31.0-37.0); MCV 94.8 fL (80.0-100.0); Mean Platelet Volume 7.5; Monocytes # (A) 0.6 k/uL (0-1.0); Monocytes % (A) 12 %; Neutrophils # (A) 2.9 k/uL (1.3-7.7); Neutrophils % (A) 61 %; Platelet Count 343 k/uL (150-450); RBC 3.42 m/uL (4.30-5.90); WBC 4.8 k/uL (3.8-10.6)
[2018-05-02 17:33] LABS: Prothrombin Time 10.6 sec (9.0-12.0)
[2018-05-02] MEDS ORDERED: ONDANSETRON 4 MG/2 ML VIAL IVP PRN (17:38)
[2018-05-02] MEDS ORDERED: NALOXONE 0.4 MG/ML 1 ML VIAL IV PRN (17:38)
[2018-05-02] MEDS ORDERED: ACETAMINOPHEN TAB 325 MG TAB PO PRN (17:38)
[2018-05-02] MEDS: SODIUM CHLORIDE 0.9% 1,000 ML IV SCH ×2 (20:09→21:36)
[2018-05-02] MEDS: MORPHINE SULFATE 4 MG/ML SYRINGE IV PRN (20:10)
[2018-05-02] MEDS: HYDROmorphone 1 MG/ML 1 ML SYRINGE IVP PRN (22:55)
[2018-05-03] MEDS: HYDROmorphone 1 MG/ML 1 ML SYRINGE IVP PRN ×7 (02:13→22:26)
[2018-05-03] MEDS: ONDANSETRON 4 MG/2 ML VIAL IVP PRN ×4 (02:13→22:26)
[2018-05-03] MEDS: IOPAMIDOL-300 CONTRAST 30 ML VIAL (ORAL USE) PO PRN ×2 (08:32→09:30)
[2018-05-03] MEDS ORDERED: PANTOPRAZOLE 40 MG/10 ML VIAL IV SCH (09:00)
--- NOTE | 2018-05-03 10:35 | CT ---
EXAMINATION TYPE: CT abdomen pelvis wo con DATE OF EXAM: 05/03/2018 COMPARISON: May 02, 2018 HISTORY: Small Bowel Obstruction CT DLP: 254.40 mGycm Examination of the solid and hollow viscera is limited given the lack of contrast. FINDINGS: LUNG BASES: Basilar pleural effusions left greater than right. Underlying atelectasis or infiltrates. LIVER/GB: The gallbladder is unremarkable. No space-occupying hepatic lesion. PANCREAS: No pancreatic mass identified. No inflammatory process seen. SPLEEN: No evidence for splenomegaly. No intrasplenic lesions seen. ADRENALS: No adrenal nodules identified. No evidence for thickening. KIDNEYS: No evidence for renal mass. Nonobstructing left-sided nephrolithiasis. No hydronephrosis. BOWEL: There are dilated loops of small and large bowel which may reflect ileus. No definite transiti on point is identified. Study is limited by lack of GI contrast as well as underlying ascites and rosaura sarca. No free air or definable abscess. Lymph nodes: No evidence for adenopathy greater than 1 cm. Abdominal aorta: Atheromatous changes seen. No evidence for aneurysm. Genital organs: No significant abnormality. Other: Large amount of ascites increasing from prior study. Anasarca noted. IMPRESSION: 1.There are dilated loops of small and large bowel which may reflect ileus. No definite transition po int is identified. Follow-up evaluation suggested. 2. Increasing ascites. 3. Anasarca. 4. Pleural effusions and basilar atelectasis and/or infiltrates.
[2018-05-03 14:57] VITALS: BMI 18.2
[2018-05-03] MEDS: SODIUM CHLORIDE 0.9% 1,000 ML IV SCH ×2 (15:20→19:31)
--- NOTE | 2018-05-03 15:31 | P.GSCN ---
<Flores Mueller - Last Filed: 05/03/18 15:22> History of Present Illness Consult date: 05/03/18 Reason for Consult: CHIEF COMPLAINT: abdominal pain HISTORY OF PRESENT ILLNESS: 63-year-old male who presented to the emergency room due to abdominal pain after undergoing paracentesis. General surgery was consulted for further evaluation. The patient currently denies abdominal pain. He reports not having a bowel movement in 4 days. Tolerating small amount of oral intake. PAST MEDICAL HISTORY: See list. PAST SURGICAL HISTORY: See list. MEDICATIONS: See list. ALLERGIES: See list. SOCIAL HISTORY: No illicit drug use. REVIEW OF SYSTEMS: CONSTITUTIONAL: Denies fever or chills. HEENT: Denies blurred vision, vision changes, or eye pain. Denies hemoptysis ENDOCRINE: Denies heat or cold intolerance. CARDIOVASCULAR: Denies chest pain or pressure. RESPIRATORY: No shortness of breath. GASTROINTESTINAL: Reports abdominal pain prior to hospitalization. Denies nausea or vomiting. NEURO: Denies history of seizures. PSYCH: No depression or suicidal ideation HEMATOLOGIC: Denies bleeding disorders. LYMPHATIC: The patient denies any lumps and bumps around the neck. GENITOURINARY: Denies any blood in urine or increased urinary frequency. MUSCULOSKELETAL: Denies myalgias. Denies joint swelling. Denies decreased range of motion beyond patients baseline. SKIN: Denies pruitis. Denies rash. PHYSICAL EXAM: VITAL SIGNS: Currently stable. GENERAL: Frail, thin mail in no acute distress. HEENT: No sclera icterus. Extraocular movements grossly intact. Moist buccal mucosa. Head is atraumatic, normocephalic. Hears conversational speech. No nasal drainage. NECK: Supple without lymphadenopathy. CHEST: Non-labored respirations and equal bilateral excursions. CARDIOVASCULAR: Regular rate with regular rhythm. Palpable 2+ radial pulses. ABDOMEN: Positive bowel sounds. Large mass to right lower quadrant of abdomen. MUSCULOSKELETAL: No clubbing, cyanosis or edema. NEUROLOGIC: No focal or lateralizing signs. Cranial nerves II through XII grossly intact. PSYCH: Appropriate affect. Alert and oriented to person, place and time. SKIN: Well perfused. Good skin turgor. IMAGING: CT abdomen and pelvis: Dilated loops of small and large bowel which may reflect ileus. No definite transition point is identified. Increasing ascites. Anasarca. Pleural effusions and basilar atelectasis and/or infiltrates. ASSESSMENT: 1. Abdominal pain 2. S/P paracentesis 3. Dilated loops of small bowel large bowel, possible ileus, possible obstruction, suspect secondary to metastasis PLAN: Dr. Akhtar spoke with patient at the bedside. No plans for surgical intervention. Patient is in agreement and states he does not want to undergo surgery. Continue medical management. Nurse practitioner note has been reviewed by physician. Signing provider agrees with the documented findings, assessment, and plan of care. 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 Questionable pancreatic cancer. History of Any Multi-Drug Resistant Organisms: None Reported Past Surgical History: Hernia Repair Additional Past Surgical History / Comment(s): UMBILICAL HERNIA (1996), RIGHT INGUINAL HERNIA (2010). paracentesis 05-02-2018 Past Anesthesia/Blood Transfusion Reactions: No Reported Reaction Past Psychological History: Anxiety, Depression Additional Psychological History / Comment(s): . Smoking Status: Light tobacco smoker Past Alcohol Use History: None Reported Additional Past Alcohol Use History / Comment(s): Smokes 3 cigs per day Past Drug Use History: Marijuana Additional Drug Use History / Comment(s): . - Past Family History Mother Family Medical History: Cancer Father Additional Family Medical History / Comment(s): "heart dsease" Medications and Allergies Home Medications Medication Instructions Recorded Confirmed Type Ascorbic Acid [Vitamin C] 1,000 mg PO DAILY 11/23/17 05/02/18 History Cholecalciferol [Vitamin D3] 1,000 unit PO DAILY 11/23/17 05/02/18 History [place] 1 tab PO DAILY 11/23/17 05/02/18 History Vitamin E Acetate [Vitamin E] 200 unit PO DAILY 11/23/17 05/02/18 History ALPRAZolam [Xanax] 0.5 mg PO TID PRN 05/02/18 05/02/18 History Morphine Sulfate 15 mg PO Q6H 05/02/18 05/02/18 History Morphine Sulfate ER [Ms Contin] 15 mg PO Q12HR 05/02/18 05/02/18 History Allergies Allergy/AdvReac Type Severity Reaction Status Date / Time No Known Allergies Allergy Verified 05/02/18 13:58 Surgical - Exam Vital Signs Temp Pulse Resp BP Pulse Ox 98.2 F 88 18 135/85 97 05/02/18 13:50 05/02/18 13:50 05/02/18 13:50 05/02/18 13:50 05/02/18 13:50 Results - Labs 05/02/18 16:30 05/02/18 14:20 Abnormal Lab Results - Last 24 Hours (Table) 05/02/18 05/02/18 05/02/18 Range/Units 14:20 14:20 16:30 RBC 3.42 L (4.30-5.90) m/uL Hgb 10.4 L (13.0-17.5) gm/dL Hct 32.4 L (39.0-53.0) % Sodium 136 L (137-145) mmol/L Chloride 96 L (98-107) mmol/L Carbon Dioxide 32 H (22-30) mmol/L BUN 35 H (9-20) mg/dL Glucose 110 H (74-99) mg/dL AST 71 H (17-59) U/L Alkaline Phosphatase 166 H (38-126) U/L Total Protein 6.2 L (6.3-8.2) g/dL Albumin 3.4 L (3.5-5.0) g/dL Urine Ketones Trace H (Negative) Diabetes panel 05/02/18 Range/Units 14:20 Sodium 136 L (137-145) mmol/L Potassium 3.7 (3.5-5.1) mmol/L Chloride 96 L (98-107) mmol/L Carbon Dioxide 32 H (22-30) mmol/L BUN 35 H (9-20) mg/dL Creatinine 0.74 (0.66-1.25) mg/dL Glucose 110 H (74-99) mg/dL Calcium 8.9 (8.4-10.2) mg/dL AST 71 H (17-59) U/L ALT 28 (21-72) U/L Alkaline Phosphatase 166 H (38-126) U/L Total Protein 6.2 L (6.3-8.2) g/dL Albumin 3.4 L (3.5-5.0) g/dL Calcium panel 05/02/18 Range/Units 14:20 Calcium 8.9 (8.4-10.2) mg/dL Albumin 3.4 L (3.5-5.0) g/dL Pituitary panel 05/02/18 Range/Units 14:20 Sodium 136 L (137-145) mmol/L Potassium 3.7 (3.5-5.1) mmol/L Chloride 96 L (98-107) mmol/L Carbon Dioxide 32 H (22-30) mmol/L BUN 35 H (9-20) mg/dL Creatinine 0.74 (0.66-1.25) mg/dL Glucose 110 H (74-99) mg/dL Calcium 8.9 (8.4-10.2) mg/dL Adrenal panel 05/02/18 Range/Units 14:20 Sodium 136 L (137-145) mmol/L Potassium 3.7 (3.5-5.1) mmol/L Chloride 96 L (98-107) mmol/L Carbon Dioxide 32 H (22-30) mmol/L BUN 35 H (9-20) mg/dL Creatinine 0.74 (0.66-1.25) mg/dL Glucose 110 H (74-99) mg/dL Calcium 8.9 (8.4-10.2) mg/dL Total Bilirubin 0.8 (0.2-1.3) mg/dL AST 71 H (17-59) U/L ALT 28 (21-72) U/L Alkaline Phosphatase 166 H (38-126) U/L Total Protein 6.2 L (6.3-8.2) g/dL Albumin 3.4 L (3.5-5.0) g/dL <Alvaro Akhtar - Last Filed: 05/05/18 09:16> Surgical - Exam Vital Signs Temp Pulse Resp BP Pulse Ox 98.2 F 88 18 135/85 97 05/02/18 13:50 05/02/18 13:50 05/02/18 13:50 05/02/18 13:50 05/02/18 13:50 Results - Labs 05/02/18 16:30 05/02/18 14:20
--- NOTE | 2018-05-03 16:49 | P.CONS ---
History of Present Illness - Reason for Consult Consult date: 05/03/18 Carcinamatosis Requesting physician: Flores Mueller - Chief Complaint inability to tolerate po intake - History of Present Illness Esequiel Deng a 63y.o.malepatient, With a past medical history of metastatic cancer, colon polyp, diverticulosis who was evaluated since August 2017 with abdominal symptoms finally presented to the hospital initially in October 2017 and an extensive workup done which showed metastatic cancer, carcinoma of unknown origin likely GI. He had a CAT scan of abdomen and pelvis on 11/22/2017 that showed small bilateral pleural effusions, massive ascites with basilar pulmonary atelectasis. subsequently had a PET scan done in October 2017 which showed GE junction inflammation with SUV of 4.72. The patient had evaluation of the esophagus which was negative. PET scan also identified pulmonary nodules which had very low SUV though. The colon had diffuse uptake. No bone metastases were seen. The patient continued to have abdominal pain and had multiple biopsies of omental metastatic disease and ascites fluid evaluation which showed poorly differentiated adenocarcinoma suggestive of upper GI/pancreaticobiliary origin. Tumor markers including CA-19-9 and CEA will within normal limits and no apparent mass was seen in the pancreas. He underwent colonoscopy and EGD as well which were uninformative. The patient subsequently underwent exploratory laparotomy and multiple biopsies of intra-abdominal nodules in September 2017 which showed diffuse carcinomatosis with multiple areas of small bowel and colonic obstruction. The patient was iniatially evaluated by us in January however the patient has not agreed to go on chemotherapy initially he was suggested FOLFOX or Xeloda with oxaliplatin, which she refused subsequently he was also given option of Xeloda alone, has not made up his mind and has not got any chemotherapy at all. He had last paracentesis was yesterday. He had a repeat CAT scan in February 2018 which showed 5 mm pulmonary nodules in the right lung and 2 stable pulmonary nodules each 4 mm in the anterior right lung. 1.5 cm portacaval lymph node. Needle focal thickening along the left lateral wall of the gastric body and fundus, suspect gastric neoplasm. Also thickening in the sigmoid and rectum and the liquid stool in the right side of colon continues to have abdominopelvic ascites. Also shows bladder wall thickening. 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 His pain continued to progress as well as his symptoms. Therefore he agreed to one round of FOLFOX as inpatient at [facility]. Toleration of chemotherapy was "ok" he had continuation of his nausea and vomiting and decreased appetite. His abdominal pain did improve although he is leary to continue on further chemotherapy. He was discharged and his symptoms improved in short term until approx 5 days ago. His appetite became less, his bowel movements are very soft/watery and intermittent. his abdominal ascites recurred, and he has become weaker. He had paracentesis completed 05/02/18, and from there was directed to Emergency. He was seen in consultation today, and family friend at bedside. We had a long discussion of the overall dismal prognosis. His wishes are to be as comfortable as possible and to be home with his . He is concerned how to manage abdominal pain at home. We discussed hospice care as an appropriate option at home. They are agreeable. Surgery has been consulted to see if opportunity for any pallaitive measures prior to home with hospice, DIscussed with SAT INSTRUCTOR and no surgical options for palliation at this time. I discussed code status in detail with patient and . THey do not want life saving measures such as CPR, Intubation or cardioversion. No life saving medications for Cardiac etiology either. I will change his code status to a DNR. Will consult Hospice care to set up at home. 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 Questionable pancreatic cancer. History of Any Multi-Drug Resistant Organisms: None Reported Past Surgical History: Hernia Repair Additional Past Surgical History / Comment(s): UMBILICAL HERNIA (1996), RIGHT INGUINAL HERNIA (2010). paracentesis 05-02-2018 Past Anesthesia/Blood Transfusion Reactions: No Reported Reaction Past Psychological History: Anxiety, Depression Additional Psychological History / Comment(s): . Smoking Status: Light tobacco smoker Past Alcohol Use History: None Reported Additional Past Alcohol Use History / Comment(s): Smokes 3 cigs per day Past Drug Use History: Marijuana Additional Drug Use History / Comment(s): . - Past Family History Mother Family Medical History: Cancer Father Additional Family Medical History / Comment(s): "heart dsease" Medications and Allergies Home Medications Medication Instructions Recorded Confirmed Type Ascorbic Acid [Vitamin C] 1,000 mg PO DAILY 11/23/17 05/02/18 History Cholecalciferol [Vitamin D3] 1,000 unit PO DAILY 11/23/17 05/02/18 History [place]ail 1 tab PO DAILY 11/23/17 05/02/18 History Vitamin E Acetate [Vitamin E] 200 unit PO DAILY 11/23/17 05/02/18 History ALPRAZolam [Xanax] 0.5 mg PO TID PRN 05/02/18 05/02/18 History Morphine Sulfate 15 mg PO Q6H 05/02/18 05/02/18 History Morphine Sulfate ER [Ms Contin] 15 mg PO Q12HR 05/02/18 05/02/18 History Allergies Allergy/AdvReac Type Severity Reaction Status Date / Time No Known Allergies Allergy Verified 05/02/18 13:58 Physical Exam Vitals: Vital Signs Temp Pulse Pulse Resp BP BP Pulse Ox 05/03/18 07:00 98.4 F 73 16 106/65 95 05/02/18 23:00 98.6 F 89 18 113/67 96 05/02/18 20:47 98.1 F 86 18 126/86 95 05/02/18 19:44 82 17 130/78 97 05/02/18 18:51 80 18 130/82 100 05/02/18 17:56 103 H 18 117/83 98 05/02/18 15:57 86 18 122/77 96 05/02/18 15:04 86 16 112/60 100 05/02/18 13:50 98.2 F 88 18 135/85 97 Intake and Output 05/02/18 05/03/18 05/03/18 22:59 06:59 14:59 Intake Total 0 0 Output Total 400 Balance 0 -400 Intake: Oral 0 0 Output: Urine 400 Other: Voiding Method Toilet # Voids 1 Constitutional: Appears comfortable, no acute distress. HENT:mucous membranes dry no lesions. Eyes: PERRL,no icterus,pallor. Neck: No lymphadenopathy trachea midline, Cardiovascular: Regular rate and rythym, no murmurs, rubs or gallops, ble peripheral edema. Pulmonary/Chest: No use of accessory muscle, chest was clear to auscultation bilaterally,no wheezing, no crackles. Gastrointestinal: Abdomen was soft, gaurding, Ascites distended,no masses felt , . Musculoskeletal: No clubbing or cyanosis, full range of motion in all extremities. Neurological: No focal motor or sensory deficits Skin: No skin rash, no palpable nodules. Psychiatric: Alert and oriented x 3. Appropriate mood and affect. Results CBC & Chem 7: 05/02/18 16:30 05/02/18 14:20 Labs: Abnormal Lab Results - Last 24 Hours (Table) 05/02/18 05/02/18 05/02/18 Range/Units 14:20 14:20 16:30 RBC 3.42 L (4.30-5.90) m/uL Hgb 10.4 L (13.0-17.5) gm/dL Hct 32.4 L (39.0-53.0) % Sodium 136 L (137-145) mmol/L Chloride 96 L (98-107) mmol/L Carbon Dioxide 32 H (22-30) mmol/L BUN 35 H (9-20) mg/dL Glucose 110 H (74-99) mg/dL AST 71 H (17-59) U/L Alkaline Phosphatase 166 H (38-126) U/L Total Protein 6.2 L (6.3-8.2) g/dL Albumin 3.4 L (3.5-5.0) g/dL Urine Ketones Trace H (Negative) Comments: CT CAP: [facility] (04/10/18) Large amount of abdominopelvic ascites with mass effect on abdominal organs raising suspicion for pseudomyxoma. 2. Interval development of peritoneal implants along the bladder dome and greater curvature of the stomach. Circumferential small bowel wall thickening in the pelvis is suspicious for serosal metastasis. 3. Suggestion of a segment of wall thickening involving the distal transverse colon which may represent the site of primary neoplasm. 4. Nonenlarged but avidly enhancing lymph nodes in the left pericardiac space measuring up to 10 mm. Trace left effusion. PATH: (04/11/18) METASTATIC ADENOCARCINOMA Peritoneal Fluid DESCRIPTION A Papanicolaou stained ThinPrep preparation and cell blocks with subsequent immunohistochemical stained slides are examined. Metastatic adenocarcinoma is present. The most likely primary sites based on immunohistochemical findings would include the upper gastrointestinal or pancreaticobiliary tract. IMMUNOHISTOCHEMISTRY RESULTS ANTIBODY Claudin-4: positive MOC-31: positive Calretinin: rare mesothelial cells positive WT-: negative CK7: positive CK20: focal cells positive CDX-2: positive in some tumor cells TTF-1: negative Controls: positive . STOMACH: [facility] Luc[facility] (04/14/18) STOMACH, MASS, BIOPSY --- POORLY DIFFERENTIATED ADENOCARCINOMA WITH FOCAL SIGNET RING CELL DIFFERENTIATION --- SEE COMMENT Comment: Histologic sections show poorly differentiated adenocarcinoma composed of infiltrative glands and nests, single cells, and focal signet ring cells within desmoplastic stroma. Scattered fragments of normal gastric epithelium are also present; however, surface dysplasia is not identified. The morphology is compatible with a poorly differentiated adenocarcinoma. The immunophenotype of the neoplastic cells (below) is nonspecific and can be seen from a number of primary sites including, but not limited to, upper gastrointestinal, pancreaticobiliary, and lung origin. Although there is no surface dysplasia in the gastric epithelium, if other sites of origin (including pancreas, biliary tract, lung) can be excluded, the features in this case are compatible with poorly differentiated adenocarcinoma of upper gastrointestinal origin. Clinical, endoscopic, and radiologic correlation is suggested. This report will be faxed to Dr. Reanna Nelson and Dr. Valdez Babin. IMMUNOHISTOCHEMISTRY RESULTS ANTIBODY Cytokeratin 7: Positive Cytokeratin 20: Positive (focal) CDX2: Positive (focal) TTF-1: Negative BRENDA-3: Negative PAX-8: Negative NKX3.1: Negative DOG-1: Negative Synaptophysin: Negative Chromogranin: Negative Procedure: Upper EUS with FNB Indications: Suspected mass in stomach on CT scan Providers: Valdez Babin MD, Ibis Maguire Referring MD: Tony Alvarez MD, Reanna Nelson M.D., Fawad Patel M.D., Salome Cagle Medicines: See the Anesthesia note for documentation of the administered medications, Cipro 400 mg IV Complications: No immediate complications. Estimated Blood Loss: Estimated blood loss was minimal. Procedure: Pre-Anesthesia Assessment: - Prior to the procedure, a History and Physical was performed, and patient medications and allergies were reviewed. The patient is competent. The risks and benefits of the procedure and the sedation options and risks were discussed with the patient. All questions were answered and informed consent was obtained. Patient identification and proposed procedure were verified by the physician and the corporate services manager in the pre-procedure area in the procedure room in the endoscopy suite. Mental Status Examination: alert and oriented. Airway Examination: normal oropharyngeal airway and neck mobility. Respiratory Examination: clear to auscultation. CV Examination: normal. Prophylactic Antibiotics: The patient does not require prophylactic antibiotics. Prior Anticoagulants: The patient has taken no previous anticoagulant or antiplatelet agents. ASA Grade Assessment: III - A patient with severe systemic disease. After reviewing the risks and benefits, the patient was deemed in satisfactory condition to undergo the procedure. The anesthesia plan was to use monitored anesthesia care (MAC). Immediately prior to administration of medications, the patient was re-assessed for adequacy to receive sedatives. The heart rate, respiratory rate, oxygen saturations, blood pressure, adequacy of pulmonary ventilation, and response to care were monitored throughout the procedure. The physical status of the patient was re-assessed after the procedure. After obtaining informed consent, the endoscope was passed under direct vision. Throughout the procedure, the patient's blood pressure, pulse, and oxygen saturations were monitored continuously. The [id number] endosonoscope was introduced through the mouth, and advanced to the second part of duodenum. The [id number]-[id number] gastroscope was introduced through the mouth, and advanced to the second part of duodenum. The upper EUS was accomplished without difficulty. The patient tolerated the procedure well. Findings: Endoscopic Finding : 04/14/18 outside hospital LA Grade B (one or more mucosal breaks greater than 5 mm, not extending between the tops of two mucosal folds) esophagitis with no bleeding was found. A small hiatal hernia was present. No gross lesions were noted in the stomach. The examined duodenum was normal. Endosonographic Finding : An intramural lesion was found in the greater curve of the stomach. The lesion was hypoechoic with irregular borders. Sonographically, the lesion appeared to originate from the external side of the stomach, invading within the intramural wall. The lesion measured 25 mm (in maximum thickness). The lesion also measured 12 mm in diameter. The outer endosonographic borders were irregular. There was sonographic evidence suggesting invasion into the muscularis propria (Layer 4). Fine needle biopsy was performed. Color Doppler imaging was utilized prior to needle puncture to confirm a lack of significant vascular structures within the needle path. Five passes were made with the 22 gauge [employer] biopsy needle using a transgastric approach. A preliminary cytologic examination was performed. Final cytology results are pending. There was extrinsic compression in the entire stomach from ascites present. Pancreas not adequately visualized due to extrinsic compression from ascites. The areas that were visualized appeared essentially normal. Impression: - LA Grade B reflux esophagitis. - Small hiatal hernia. - No gross lesions in the stomach. - Normal examined duodenum. - An 2.5 x 1.2 cm intramural lesion was found in the greater curve of the stomach. The lesion appeared to originate from the external side of the stomach, invading within the intramural wall. Cytology results are pending. However, the endosonographic appearance is suggestive of metastatic adenocarcinoma, unknown primary. Fine needle biopsy performed. - Extrinsic compression was noted in the entire stomach from ascites. - Pancreas not adequately visualized due to extrinsic compression from ascites. Recommendation: - Use Prilosec (omeprazole) 20 mg PO BID. - Follow up on pathology results. - Advance diet as tolerated. - One dose of ciprofloxacin iv [address] scan - abdomen: report reviewed CT scan - chest: report reviewed Assessment and Plan Plan: 1. 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 - Patient has refused treatment with chemotherapy up until 04/20/18, status post one cycle of FOLFOX. - His disease is showing rapid progression, evidenced by symptoms and recurrent ascites - Overall Prognosis is Poor and patient and understand, long discussion regarding code status. Patient DNR - No surgical options at this time. - Will consult Hospice care to evaluate and plan for home with hospice per patient wishes. Focus of pain control at home, plan for paracentesis evaluation prior to discharge. Physician Attestation: I have completed the full history and physical of this patient and agree with above dictation by Brenda Collazo NP dictated as a scribe.
--- NOTE | 2018-05-03 21:47 | P.CONS ---
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 Vomitus is mainly consists of fecal material as per patient. Patient had gastric biopsy with EGD at [facility] in March 2018. Patient also has a history of colon polyps, diverticulosis. Patient initially has abdominal symptoms started in August 2017 where he had expiratory laparotomy with biopsy was done. At the time patient was recommended with cancer staging including chemotherapy per the patient refused at that time and wanted to go with holistic approach. Patient had repeat CT abdomen pelvis done in October 2017 showed massive ascites with basilar pulmonary atelectasis. PET scan showed GE junction inflammation. Patient was recently seen at [facility]. Due to worsening abdominal pain patient agreed with chemotherapy. Patient had one round of chemotherapy with improvement in him abdominal symptoms. Patient was sent home. Patient was seen in the hospital for recurrent abdominal distention and paracentesis was done on 05/02/2018. Patient was sent to Hospital due to nausea vomiting and abdominal pain. CT of the abdominal pelvis showed multiple loops dilated small bowel containing air fluid level. No discrete transition point identified given lack of contrast. Currently on conservative approach due to bowel obstruction. Review of Systems Constitutional: Patient denies any fever or chills . No generalized weakness or weight loss. Abdomen: [place] does have nausea and vomiting with physical material and abdominal distention and pain Cardiovascular: Patient denies any chest pain or short of breath no palpitations. Respiratory: patient denied any cough is from production. No shortness of breath Neurologic: Patient denied any numbness or tingling headache. Musculoskeletal: Patient denies any complaints of joint swelling or deformity. Skin: Negative Psychiatric: Anxious Endocrine: No heat or cold intolerance. No recent weight gain. Genitourinary: No dysuria or hematuria. 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 Questionable pancreatic cancer. History of Any Multi-Drug Resistant Organisms: None Reported Past Surgical History: Hernia Repair Additional Past Surgical History / Comment(s): UMBILICAL HERNIA (1996), RIGHT INGUINAL HERNIA (2010). paracentesis 05-02-2018 Past Anesthesia/Blood Transfusion Reactions: No Reported Reaction Past Psychological History: Anxiety, Depression Additional Psychological History / Comment(s): . Smoking Status: Light tobacco smoker Past Alcohol Use History: None Reported Additional Past Alcohol Use History / Comment(s): Smokes 3 cigs per day Past Drug Use History: Marijuana Additional Drug Use History / Comment(s): . - Past Family History Mother Family Medical History: Cancer Father Additional Family Medical History / Comment(s): "heart dsease" Medications and Allergies Home Medications Medication Instructions Recorded Confirmed Type Ascorbic Acid [Vitamin C] 1,000 mg PO DAILY 11/23/17 05/02/18 History Cholecalciferol [Vitamin D3] 1,000 unit PO DAILY 11/23/17 05/02/18 History [place]ail 1 tab PO DAILY 11/23/17 05/02/18 History Vitamin E Acetate [Vitamin E] 200 unit PO DAILY 11/23/17 05/02/18 History ALPRAZolam [Xanax] 0.5 mg PO TID PRN 05/02/18 05/02/18 History Morphine Sulfate 15 mg PO Q6H 05/02/18 05/02/18 History Morphine Sulfate ER [Ms Contin] 15 mg PO Q12HR 05/02/18 05/02/18 History Allergies Allergy/AdvReac Type Severity Reaction Status Date / Time No Known Allergies Allergy Verified 05/02/18 13:58 Physical Exam Vitals: Vital Signs Temp Pulse Pulse Resp BP BP Pulse Ox 05/03/18 07:00 98.4 F 73 16 106/65 95 05/02/18 23:00 98.6 F 89 18 113/67 96 05/02/18 20:47 98.1 F 86 18 126/86 95 05/02/18 19:44 82 17 130/78 97 05/02/18 18:51 80 18 130/82 100 05/02/18 17:56 103 H 18 117/83 98 05/02/18 15:57 86 18 122/77 96 05/02/18 15:04 86 16 112/60 100 05/02/18 13:50 98.2 F 88 18 135/85 97 Intake and Output 05/02/18 05/03/18 05/03/18 22:59 06:59 14:59 Intake Total 0 0 Output Total 400 Balance 0 -400 Intake: Oral 0 0 Output: Urine 400 Other: Voiding Method Toilet Toilet # Voids 1 PHYSICAL EXAMINATION: Patient is lying in the bed comfortably, no acute distress, awake alert and oriented.. HEENT: Normocephalic. Neck is supple. Pupils reactive. Nostrils clear. Oral cavity is moist. Ears reveal no drainage. Neck reveals no JVD, carotid bruits, or thyromegaly. CHEST EXAMINATION: Trachea is central. Symmetrical expansion. Bibasilar diminished air entry. Lung bell clear to auscultation and percussion. CARDIAC: Normal S1, S2 with no gallops. No murmurs ABDOMEN: Soft. Distended. Bowel sounds hyperactive. Mild tenderness. No guarding or rigidity. No organomegaly. No abdominal bruits. Extremities: reveal no edema. No clubbing or cyanosis Neurologically awake, alert, oriented x3 with well-coordinated movements. No focal deficits noted Skin: No rash or skin lesions. Psychiatric: Coperative. Nonsuicidal Musculoskeletal: No joint swelling or deformity. Normal range of motion. Results CBC & Chem 7: 05/02/18 16:30 05/02/18 14:20 Labs: Abnormal Lab Results - Last 24 Hours (Table) 05/02/18 05/02/18 05/02/18 Range/Units 14:20 14:20 16:30 RBC 3.42 L (4.30-5.90) m/uL Hgb 10.4 L (13.0-17.5) gm/dL Hct 32.4 L (39.0-53.0) % Sodium 136 L (137-145) mmol/L Chloride 96 L (98-107) mmol/L Carbon Dioxide 32 H (22-30) mmol/L BUN 35 H (9-20) mg/dL Glucose 110 H (74-99) mg/dL AST 71 H (17-59) U/L Alkaline Phosphatase 166 H (38-126) U/L Total Protein 6.2 L (6.3-8.2) g/dL Albumin 3.4 L (3.5-5.0) g/dL Urine Ketones Trace H (Negative) Assessment and Plan Assessment: Acute small and large bowel obstruction likely due to extensive peritoneal carcinomatosis Abdominal distention with ascites Bibasilar pleural effusion Metastatic poorly differentiated adenocarcinoma. Primary being Gastric versus hepatobiliary Nausea vomiting and abdominal pain Recurrent ascites status post paracentesis on 05/02/2018 Plan: Patient will be continued on IV fluids and pain management with Dilaudid IV. Due to underlying metastatic adenocarcinoma and extensive carcinomatosis patient will be continued on conservative therapy at this time. General surgery and oncology is on board. Prognosis is poor. Discussed with the family extensively regarding her diagnosis and underlying medical problems including metastatic cancer.. Time with Patient: Greater than 30
[2018-05-03] MEDS: PANTOPRAZOLE 40 MG/10 ML VIAL IV SCH (22:25)
[2018-05-04] MEDS: HYDROmorphone 1 MG/ML 1 ML SYRINGE IVP PRN ×7 (01:28→21:28)
[2018-05-04] MEDS: ONDANSETRON 4 MG/2 ML VIAL IVP PRN ×2 (04:37→15:48)
[2018-05-04] MEDS: PANTOPRAZOLE 40 MG/10 ML VIAL IV SCH ×2 (08:54→19:56)
[2018-05-04] MEDS: SODIUM CHLORIDE 0.9% 1,000 ML IV SCH ×2 (10:00→19:56)
--- NOTE | 2018-05-04 16:53 | P.PN ---
Subjective Progress Note Date: 05/04/18 Principal diagnosis: SBO r/t malignancy In f/u pt states he is very comfortable at this time, no physical c/o. Concerned about pain control and recurrent SOB at home, concerned about managing pt at home. Objective - Vital Signs Vital signs: Vital Signs Temp 98.1 F 05/04/18 12:04 Pulse 73 05/04/18 12:04 Resp 17 05/04/18 12:04 BP 123/69 05/04/18 12:04 Pulse Ox 97 05/04/18 12:04 Intake & Output 05/03/18 05/04/18 05/04/18 18:59 06:59 18:59 Intake Total 800 800 Output Total 200 Balance 800 600 Weight 54.431 kg Intake: Intake, IV Titration 800 800 Amount Sodium Chloride 0.9% 1, 800 800 000 ml @ 100 mls/hr IV . Q10H [facility] Rx#:[id number] Output: Urine 200 Other: Voiding Method Toilet Urinal Urinal # Voids 1 - Exam Thin, frail, emaciated male laying comfortably in bed, NAD, A&Ox4, abd visibly distended with visible tumors - Labs CBC & Chem 7: 05/02/18 16:30 05/02/18 14:20 Assessment and Plan (1) SBO (small bowel obstruction) Current Visit: Yes Status: Acute Priority: High Code(s): K56.609 - UNSP INTESTNL OBST, UNSP TO PARTIAL VERSUS COMPLETE OBST SNOMED Code(s): 962690513 (2) Adenocarcinoma Current Visit: Yes Status: Chronic Priority: High Code(s): C80.1 - MALIGNANT (PRIMARY) NEOPLASM, UNSPECIFIED SNOMED Code(s): 013328062 Plan: Pt and have decided to go home with hospice care. Told them to discuss with Hospice their concerns. Assured them that pain would be managed, meds for symptoms would be provided, assistive devices would be made available to aid in caring for the patient and that she would have support as her conditions changes. All questions answered to pt and satisfaction Pt will be discharged once hospice in place Attests: I have performed H&P and developed impression and plan of care of patient, discussed with dictator. I agree with dictated note, documented as a scribe.
[2018-05-04] MEDS ORDERED: ONDANSETRON 4 MG/2 ML VIAL IVP STA (19:37)
[2018-05-04] MEDS ORDERED: HYDROcodone/APAP 7.5-325MG 1 EACH TAB PO PRN (19:37)
--- NOTE | 2018-05-04 22:25 | P.PN ---
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 Vomitus is mainly consists of fecal material as per patient. Patient had gastric biopsy with EGD at [facility] in March 2018. Patient also has a history of colon polyps, diverticulosis. Patient initially has abdominal symptoms started in August 2017 where he had expiratory laparotomy with biopsy was done. At the time patient was recommended with cancer staging including chemotherapy per the patient refused at that time and wanted to go with holistic approach. Patient had repeat CT abdomen pelvis done in October 2017 showed massive ascites with basilar pulmonary atelectasis. PET scan showed GE junction inflammation. Patient was recently seen at [facility]. Due to worsening abdominal pain patient agreed with chemotherapy. Patient had one round of chemotherapy with improvement in him abdominal symptoms. Patient was sent home. Patient was seen in the hospital for recurrent abdominal distention and paracentesis was done on 05/02/2018. Patient was sent to Hospital due to nausea vomiting and abdominal pain. CT of the abdominal pelvis showed multiple loops dilated small bowel containing air fluid level. No discrete transition point identified given lack of contrast. Currently on conservative approach due to bowel obstruction. 05/04/2018 Patient is lying in the bed comfortable. Pain is controlled with morphine and Dilaudid and [place]. Due to advanced cancer patient and family is agreeable for hospice care. Hospice consult. Oncology is following. Current medications reviewed Objective - Vital Signs Vital signs: Vital Signs Temp 96.7 F L 05/04/18 16:49 Pulse 100 05/04/18 16:49 Resp 14 05/04/18 16:49 BP 112/75 05/04/18 16:49 Pulse Ox 96 05/04/18 16:49 Intake & Output 05/04/18 05/04/18 05/05/18 06:59 18:59 06:59 Intake Total 800 1460 800 Output Total 200 200 100 Balance 600 1260 700 Intake: Intake, IV Titration 800 600 800 Amount Sodium Chloride 0.9% 1, 800 600 800 000 ml @ 100 mls/hr IV . Q10H [facility] Rx#:[id number] Oral 860 Output: Urine 200 200 100 Other: Voiding Method Urinal Urinal # Voids 1 4 - Exam PHYSICAL EXAMINATION: Patient is lying in the bed comfortably, no acute distress, awake alert and oriented.. HEENT: Normocephalic. Neck is supple. Pupils reactive. Nostrils clear. Oral cavity is moist. Ears reveal no drainage. Neck reveals no JVD, carotid bruits, or thyromegaly. CHEST EXAMINATION: Trachea is central. Symmetrical expansion. Bibasilar diminished air entry. Lung bell clear to auscultation and percussion. CARDIAC: Normal S1, S2 with no gallops. No murmurs ABDOMEN: Soft. Distended. Bowel sounds hyperactive. Mild tenderness. No guarding or rigidity. No organomegaly. No abdominal bruits. Extremities: reveal no edema. No clubbing or cyanosis Neurologically awake, alert, oriented x3 with well-coordinated movements. No focal deficits noted Skin: No rash or skin lesions. Psychiatric: Coperative. Nonsuicidal Musculoskeletal: No joint swelling or deformity. Normal range of motion. - Labs CBC & Chem 7: 05/02/18 16:30 05/02/18 14:20 Assessment and Plan Assessment: Acute small and large bowel obstruction likely due to extensive peritoneal carcinomatosis Abdominal distention with ascites Bibasilar pleural effusion Metastatic poorly differentiated adenocarcinoma. Primary being Gastric versus hepatobiliary Nausea vomiting and abdominal pain Recurrent ascites status post paracentesis on 05/02/2018 Plan: Patient will be continued on IV fluids and pain management with Dilaudid IV. Due to underlying metastatic adenocarcinoma and extensive carcinomatosis patient will be continued on conservative therapy at this time. General surgery and oncology is on board. Prognosis is poor. Discussed with the family extensively regarding her diagnosis and underlying medical problems including metastatic cancer. Patient and his is agreeable with hospice care.. Time with Patient: Greater than 30
[2018-05-05] MEDS: HYDROmorphone 1 MG/ML 1 ML SYRINGE IVP PRN ×8 (00:21→22:23)
[2018-05-05] MEDS: ONDANSETRON 4 MG/2 ML VIAL IVP PRN ×2 (00:21→06:16)
[2018-05-05] MEDS: SODIUM CHLORIDE 0.9% 1,000 ML IV SCH ×3 (06:16→22:26)
[2018-05-05] MEDS: PANTOPRAZOLE 40 MG/10 ML VIAL IV SCH ×2 (08:03→21:10)
[2018-05-05] MEDS ORDERED: MAGNESIUM HYDROXIDE 2,400 MG/10 ML CUP PO PRN (13:39)
--- NOTE | 2018-05-05 15:56 | P.PN ---
Subjective Progress Note Date: 05/05/18 Patient is to be in distress has he says no wheeze taking Interest in his care. His pain is better now but he hasn't had a bowel movement yet. He is passing small gases Objective - Vital Signs Vital signs: Vital Signs Temp 98.1 F 05/05/18 12:22 Pulse 76 05/05/18 12:22 Resp 16 05/05/18 12:22 BP 126/75 05/05/18 12:22 Pulse Ox 95 05/05/18 12:22 Intake & Output 05/04/18 05/05/18 05/05/18 18:59 06:59 18:59 Intake Total 1460 2190 Output Total 200 100 Balance 1260 2090 Intake: Intake, IV Titration 600 1600 Amount Sodium Chloride 0.9% 1, 600 1600 000 ml @ 100 mls/hr IV . Q10H [facility] Rx#:[id number] Oral 860 590 Output: Urine 200 100 Other: Voiding Method Urinal Urinal # Voids 4 2 - Exam On exam, alert and oriented x3. HEENT: Conjunctivae normal. eyes normal. NECK: No JVD. No thyroid enlargement. No LNs CARDIOVASCULAR: S1, S2 muffled. No murmur RESPIRATION: Breath sounds diminished in the bases. No rhonchi or crackles. No bronchial breathing. ABDOMEN: Soft, distended tenderness appreciated, no guarding or rigidity.. LEGS: No edema. no swelling NERVOUS SYSTEM: Cranial N 2-12 grossly normal. Moves all 4 limbs. No focal deficits. No sensory deficit. No signs of cerebellar dysfucntion. Skin: no ulcer no rash Joints: No active swelling. No inflammation. - Labs CBC & Chem 7: 05/02/18 16:30 05/02/18 14:20 Assessment and Plan Assessment: Small and large bowel obstruction small or large bowel obstruction due to peritoneal carcinomatosis Ascites Metastatic poorly differentiated adenocarcinoma Pleural effusions Plan- - Patient today says that he wants to know more options and surgical interventional is possible to elevate the symptoms - He said that no one has come and talk to him and discussed about what the exact plan is and is confused - He said that he wasn't [facility] about 2 weeks ago and he was seen by colorectal surgeon who offered him stent placement at the site of obstruction. - We will discuss with oncology and surgery as to what the plan of care would be - The patient is not ready for hospice according to him - DVT and GI prophylaxis - We'll continue to care and follow-up with them
--- NOTE | 2018-05-05 17:30 | P.PN ---
Subjective Progress Note Date: 05/05/18 Principal diagnosis: SBO r/t malignancy In f/u pt states he is comfortable at this time, noting increasing abd distension and constipation. Pt and had numerous questions about discharge. Objective - Vital Signs Vital signs: Vital Signs Temp 98.1 F 05/05/18 12:22 Pulse 76 05/05/18 12:22 Resp 16 05/05/18 12:22 BP 126/75 05/05/18 12:22 Pulse Ox 95 05/05/18 12:22 Intake & Output 05/04/18 05/05/18 05/05/18 18:59 06:59 18:59 Intake Total 1460 2190 Output Total 200 100 Balance 1260 2090 Intake: Intake, IV Titration 600 1600 Amount Sodium Chloride 0.9% 1, 600 1600 000 ml @ 100 mls/hr IV . Q10H [facility] Rx#:[id number] Oral 860 590 Output: Urine 200 100 Other: Voiding Method Urinal Urinal # Voids 4 2 - Exam Thin, frail, emaciated male laying comfortably in bed, arms above his head, ankles crossed, normal conversation, NAD, A&Ox4, abd visibly distended with visible tumors - Labs CBC & Chem 7: 05/02/18 16:30 05/02/18 14:20 Assessment and Plan (1) SBO (small bowel obstruction) Current Visit: Yes Status: Acute Priority: High Code(s): K56.609 - UNSP INTESTNL OBST, UNSP TO PARTIAL VERSUS COMPLETE OBST SNOMED Code(s): 394954359 (2) Adenocarcinoma Current Visit: Yes Status: Chronic Priority: High Code(s): C80.1 - MALIGNANT (PRIMARY) NEOPLASM, UNSPECIFIED SNOMED Code(s): 493507754 Plan: Pt and have changed their mids, pt is now going home with palliative care, maybe transition to hospice. Again they voiced concerns about treatment of symptoms. I again reinforced that palliative care or hospice will help them to manage symptoms as the goal of care and treatments is comfort. Re-assured them that pain would be managed, meds for symptoms would be provided, assistive devices would be made available to aid in caring for the patient and that she would have support as her conditions changes. All questions answered to pt and satisfaction Pt will be discharged once palliative care
[2018-05-06] MEDS: ONDANSETRON 4 MG/2 ML VIAL IVP PRN (02:23)
[2018-05-06] MEDS: MORPHINE SULFATE 4 MG/ML SYRINGE IV PRN (02:24)
[2018-05-06] MEDS: SODIUM CHLORIDE 0.9% 1,000 ML IV SCH (06:24)
[2018-05-06] MEDS: HYDROmorphone 1 MG/ML 1 ML SYRINGE IVP PRN ×5 (06:25→22:49)
[2018-05-06 08:02] LABS: HCT 35.6 % (39.0-53.0); MCH 30.1 pg (25.0-35.0); MCHC 30.9 g/dL (31.0-37.0); MCV 97.6 fL (80.0-100.0); Platelet Count 408 k/uL (150-450); RBC 3.65 m/uL (4.30-5.90); RDW 13.8 % (11.5-15.5)
[2018-05-06 08:07] LABS: Prothrombin Time 10.3 sec (9.0-12.0)
[2018-05-06 08:13] LABS: Anion Gap 8 mmol/L; Blood Urea Nitrogen 32 mg/dL (9-20); Carbon Dioxide 26 mmol/L (22-30); Chloride 106 mmol/L (98-107); Glucose 84 mg/dL (74-99); Sodium 140 mmol/L (137-145)
[2018-05-06] MEDS: PANTOPRAZOLE 40 MG/10 ML VIAL IV SCH (09:16)
[2018-05-06 11:37] VITALS: RESP 16; TEMP 98.5
--- NOTE | 2018-05-06 12:06 | US ---
EXAMINATION TYPE: US paracentesis abd w/image DATE OF EXAM: 05/06/2018 COMPARISON: NONE HISTORY: Ascites. PROCEDURE: Maximal barrier technique was utilized. The skin overlying a suitable pocket of fluid was localized with ultrasound and the overlying skin was prepped and draped. Ultrasound was utilized with sterile technique. Lidocaine was used for local anesthesia and a skin efrain made with a scalpel. Catheter was advanced under direct ultrasound guidance into a suitable pocket of fluid and approximately 2 liters of serous fluid were removed. Catheter was withdrawn and hemostasis achieved. There is no immediate complication; the patient is discharged in stable condition. IMPRESSION: STATUS POST ULTRASOUND GUIDED PARACENTESIS FOR PALLIATION OF ASCITES. THIS PROCEDURE WA S PERFORMED BY THE UNDERSIGNED.
[2018-05-06] MEDS ORDERED: MORPHINE CONC SOLN 10mg/0.5mL ORAL SYRG PO PRN (16:05)
[2018-05-06 17:07] VITALS: BP 132/76
[2018-05-06] MEDS: PANTOPRAZOLE 40 MG TABLET PO SCH (17:19)
--- NOTE | 2018-05-06 19:16 | P.PN ---
Subjective 2 Patient is to be in distress has he says no wheeze taking Interest in his care. His pain is better now but he hasn't had a bowel movement yet. He is passing small gases 2/8 S/P paracentesis. Says feels much better and is more comfortable Still voicing concerns about the treatment options Still has belly pain, passing gases but no abd pain Objective - Vital Signs Vital signs: Vital Signs Temp 98.5 F 05/06/18 11:02 Pulse 82 05/06/18 17:06 Resp 16 05/06/18 17:06 BP 132/76 05/06/18 17:06 Pulse Ox 98 05/06/18 17:06 Intake & Output 05/06/18 05/06/18 05/07/18 06:59 18:59 06:59 Intake Total 600 Output Total 25 Balance 575 Weight 54.431 kg Intake: Intake, IV Titration 600 Amount Sodium Chloride 0.9% 1, 600 000 ml @ 100 mls/hr IV . Q10H [facility] Rx#:[id number] Output: Emesis 25 Other: Voiding Method Toilet # Voids 1 3 - Exam On exam, alert and oriented x3. HEENT: Conjunctivae normal. eyes normal. NECK: No JVD. No thyroid enlargement. No LNs CARDIOVASCULAR: S1, S2 muffled. No murmur RESPIRATION: Breath sounds diminished in the bases. No rhonchi or crackles. No bronchial breathing. ABDOMEN: Soft, less distended today, tenderness appreciated but better than yesterday, no guarding or rigidity. LEGS: No edema. no swelling NERVOUS SYSTEM: Cranial N 2-12 grossly normal. Moves all 4 limbs. No focal deficits. No sensory deficit. No signs of cerebellar dysfucntion. Skin: no ulcer no rash Joints: No active swelling. No inflammation. - Labs CBC & Chem 7: 05/06/18 07:22 05/06/18 07:22 Labs: Abnormal Lab Results - Last 24 Hours (Table) 05/06/18 05/06/18 Range/Units 07:22 07:22 RBC 3.65 L (4.30-5.90) m/uL Hgb 11.0 L (13.0-17.5) gm/dL Hct 35.6 L (39.0-53.0) % MCHC 30.9 L (31.0-37.0) g/dL BUN 32 H (9-20) mg/dL Assessment and Plan Assessment: Small and large bowel obstruction due to peritoneal carcinomatosis Ascites Metastatic poorly differentiated adenocarcinoma Pleural effusions Plan- - Had paracentesis, says he is feeling better after that - He wants to discuss with surgery about possible options - He wants me to talk to the colorectal surgeon at [facility] regarding the stent placement to relieve the obstruction. to get the surgeons phone number - Pain control till that time - Will f/u Time with Patient: Greater than 30
--- NOTE | 2018-05-06 19:23 | P.PN ---
Subjective Progress Note Date: 05/06/18 Principal diagnosis: Metastatic Gastric Cancer and Pain patient seen and examined still difficult to tolerate PO intake, nausea and increased nausea. Objective - Vital Signs Vital signs: Vital Signs Temp 98.5 F 05/06/18 11:02 Pulse 82 05/06/18 12:47 Resp 16 05/06/18 11:02 BP 126/81 05/06/18 12:47 Pulse Ox 97 05/06/18 12:47 Intake & Output 05/05/18 05/06/18 05/06/18 18:59 06:59 18:59 Intake Total 1460 600 Output Total 200 25 Balance 1260 575 Weight 54.431 kg Intake: Intake, IV Titration 600 600 Amount Sodium Chloride 0.9% 1, 600 600 000 ml @ 100 mls/hr IV . Q10H [facility] Rx#:[id number] Oral 860 Output: Urine 200 Emesis 25 Other: Voiding Method Urinal Toilet # Voids 2 1 3 - Exam Constitutional: Appears comfortable, no acute distress. HENT:mucous membranes dry no lesions. Eyes: PERRL,no icterus,pallor. Neck: No lymphadenopathy trachea midline, Cardiovascular: Regular rate and rythym, no murmurs, rubs or gallops, ble peripheral edema. Pulmonary/Chest: No use of accessory muscle, chest was clear to auscultation bilaterally,no wheezing, no crackles. Gastrointestinal: Abdomen was soft, gaurding, Ascites distended,no masses felt , . Musculoskeletal: No clubbing or cyanosis, full range of motion in all extremities. Neurological: No focal motor or sensory deficits Skin: No skin rash, no palpable nodules. Psychiatric: Alert and oriented x 3. Appropriate mood and affect. - Labs CBC & Chem 7: 05/06/18 07:22 05/06/18 07:22 Labs: Abnormal Lab Results - Last 24 Hours (Table) 05/06/18 05/06/18 Range/Units 07:22 07:22 RBC 3.65 L (4.30-5.90) m/uL Hgb 11.0 L (13.0-17.5) gm/dL Hct 35.6 L (39.0-53.0) % MCHC 30.9 L (31.0-37.0) g/dL BUN 32 H (9-20) mg/dL Assessment and Plan Plan: 1. 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 - Patient has refused treatment with chemotherapy up until 04/20/18, status post one cycle of FOLFOX. - His disease is showing rapid progression, evidenced by symptoms and recurrent ascites - Overall Prognosis is Poor and patient and understand, long discussion regarding code status. Patient DNR - No surgical options at this time. - Long discussion with patient today. His was not present and he expressed his wishes to be comfortable and to go home with hospice, although feels his is not on board and she will need to be "weaned" into it. He had many emotions today during our long discussion. He expressed anger, sadness, fear, and anxiety. His bigest fear expressed was going home without being comfortable. It is difficult for him to take PO pills for pain as he has a near to full obstruction from cancer and has not been able to homd down without vomiting. He has attempted MS contin previously without success, therefore in preparation for discharge I have changed his pain medications to transdermal fentanyl patch and roxanol. We will work on pain control prior to discharge with feasible medications as well as plan to discharge with palliative care. We will ask surgery to see again, per Dr. Metcalf, will need a decompression tube prior to discharge for comfort purposes, patient is agreeable. Greater than 30 minutes face to face Physician Attestation: I have completed the full history and physical of this patient and agree with above dictation by Brenda Collazo NP dictated as a scribe. Time with Patient: Greater than 30
[2018-05-06 19:44] VITALS: PULSE 68
[2018-05-07] MEDS: HYDROmorphone 1 MG/ML 1 ML SYRINGE IVP PRN ×5 (05:35→23:03)
[2018-05-07] MEDS: ONDANSETRON 4 MG/2 ML VIAL IVP PRN ×3 (05:36→20:30)
[2018-05-07] MEDS: PANTOPRAZOLE 40 MG TABLET PO SCH ×2 (08:59→17:26)
--- NOTE | 2018-05-07 10:12 | P.PN ---
Progress Note - Text Progress Note Date: 05/07/18 I was asked to see the patient regarding possible enterostomy tube for decompression. I discussed with the patient that a small bowel enterostomy tube tube can be placed for decompression however there is risk involved with blockage of the tube and issues with the tube leaking causing peritonitis. The patient does not wish to have any surgical intervention performed at this point. We will sign off, please contact if you.
--- NOTE | 2018-05-07 15:37 | P.PN ---
Subjective 2/ Patient is to be in distress has he says no wheeze taking Interest in his care. His pain is better now but he hasn't had a bowel movement yet. He is passing small gases 2/8 S/P paracentesis. Says feels much better and is more comfortable Still voicing concerns about the treatment options Still has belly pain, passing gases but no abd pain 05/07/2018 Patient says that he still did not have a bowel movement Says still passing gases Objective - Vital Signs Vital signs: Vital Signs Temp 98.5 F 05/06/18 11:02 Pulse 68 05/06/18 19:18 Resp 16 05/06/18 19:18 BP 132/76 05/06/18 17:06 Pulse Ox 98 05/06/18 17:06 Intake & Output 05/06/18 05/07/18 05/07/18 18:59 06:59 18:59 Weight 54.431 kg Other: Voiding Method Urinal Urinal # Voids 3 1 2 - Exam On exam, alert and oriented x3. HEENT: Conjunctivae normal. eyes normal. NECK: No JVD. No thyroid enlargement. No LNs CARDIOVASCULAR: S1, S2 muffled. No murmur RESPIRATION: Breath sounds diminished in the bases. No rhonchi or crackles. No bronchial breathing. ABDOMEN: Soft, less distended today, tenderness appreciated but better than yesterday, no guarding or rigidity. LEGS: No edema. no swelling NERVOUS SYSTEM: Cranial N 2-12 grossly normal. Moves all 4 limbs. No focal deficits. No sensory deficit. No signs of cerebellar dysfucntion. Skin: no ulcer no rash Joints: No active swelling. No inflammation. 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 Patient does not want to undergo any surgery at this moment - Also discussed with the patient's colorectal surgeon who saw him recently at [facility]. He suggested that he can probably place a stent in the large bowel but if he is having obstruction in the small bowel he will not be able to place stents over there. He suggested to get a Gastrografin enema to exactly locate the location of the obstruction. Discussed the situation with the patient. Patient says that he does not want to undergo Gastrografin enema or any other procedures or surgeries. I also discussed with him that as per hem /onc, chemotherapy or immunotherapy are not recommended because of poor functional status. Patient does not want to undergo surgery or Gastrografin enema to locate the obstruction. I suggested that in this situation one option is to go hospice route. Patient and the agreed. - We will therefore consult hospice will be seeing the patient today. - He will likely go home on hospice tomorrow Time with Patient: Greater than 30
[2018-05-08] MEDS: HYDROmorphone 1 MG/ML 1 ML SYRINGE IVP PRN ×3 (02:29→10:38)
[2018-05-08] MEDS: ONDANSETRON 4 MG/2 ML VIAL IVP PRN ×2 (02:29→08:07)
[2018-05-08] MEDS: PANTOPRAZOLE 40 MG TABLET PO SCH (08:08)
--- NOTE | 2018-05-08 12:30 | P.DS ---
Providers Date of admission: 05/02/18 17:38 Expected date of discharge: 05/08/18 Attending physician: Martha Medellin Consults: 05/03/18 09:25 Consult Physician Routine Consulting Provider: Sahil Metcalf Consult Reason/Comments: s/p paracent. hx of cancer, patient known to you Do you want consulting provider notified?: Yes 05/03/18 09:27 Consult Physician Routine Consulting Provider: Martha Medellin Consult Reason/Comments: medical management Do you want consulting provider notified?: Yes 05/03/18 15:48 Consult Physician Routine Consulting Provider: Alvaro Akhtar Consult Reason/Comments: SBO Do you want consulting provider notified?: Already Contacted 05/06/18 19:24 Consult Physician Routine Consulting Provider: Alvaro Akhtar Consult Reason/Comments: decompression tube prior to home with palliative/ hospice care Do you want consulting provider notified?: Yes, Notify in am Primary care physician: Reanna Nelson 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 He was having fecal matter in the vomitus. Computed tomography scan of the abdomen done showed a multiple loops of dilated small bowel containing air fluid level. During the hospital course, patient was seen by hematology oncology who suggested that the patient is not a candidate for chemotherapy or immunotherapy because of his poor functional status and that he did not tolerate his first cycle of chemotherapy. Surgery was also consulted. Surgery discussED with the patient for possible decompression tube. Patient did not want to do any surgeries. I also discussed the case with the patient's colorectal surgeon from [facility]. The corrective surgery recommended Gastrografin enema to determine where the obstruction is and then he would decide if the patient would benefit from stent placement and large bowel. Discussed this option with the patient. Patient suggested that he would not want any further testing or procedures done. An option of hospice was discussed with the patient. His is also present at the time. They both agree to hospice care. On 05/08/2018 On exam, alert and oriented x3. HEENT: Conjunctivae normal. eyes normal. NECK: No JVD. No thyroid enlargement. No LNs CARDIOVASCULAR: S1, S2 muffled. No murmur RESPIRATION: Breath sounds diminished in the bases. No rhonchi or crackles. No bronchial breathing. ABDOMEN: Soft, tender dilated. LEGS: No edema. no swelling NERVOUS SYSTEM: Cranial N 2-12 grossly normal. Moves all 4 limbs. No focal deficits. No sensory deficit. No signs of cerebellar dysfucntion. Skin: no ulcer no rash Joints: No active swelling. No inflammation. Lymphatic system. No LN neck axilla or groin. Patient Condition at Discharge: Fair Plan - Discharge Summary Discharge Rx Participant: Yes New Discharge Prescriptions: New ALPRAZolam [Xanax] 0.25 mg PO BID PRN 3 Days #60 tab PRN Reason: Anxiety MORPHINE ORAL JOHANA CONC 20mg/mL [Roxanol Oral Soln Conc 20MG/ML] 10 mg PO Q4H PRN 30 Days #45 ml PRN Reason: Pain Control Pantoprazole [Protonix] 40 mg PO AC-BID #60 tablet. fentaNYL 50MCG/HR PATCH [Duragesic 50MCG/HR] 1 patch TRANSDERM Q72H PRN #10 patch PRN Reason: Pain Control Continue ALPRAZolam [Xanax] 0.5 mg PO TID PRN PRN Reason: Pain Morphine Sulfate 15 mg PO Q6H Morphine Sulfate ER [Ms Contin] 15 mg PO Q12HR Discontinued [place] 1 tab PO DAILY Ascorbic Acid [Vitamin C] 1,000 mg PO DAILY Vitamin E Acetate [Vitamin E] 200 unit PO DAILY Cholecalciferol [Vitamin D3] 1,000 unit PO DAILY Discharge Medication List ALPRAZolam [Xanax] 0.5 mg PO TID PRN 05/02/18 [History] Morphine Sulfate 15 mg PO Q6H 05/02/18 [History] Morphine Sulfate ER [Ms Contin] 15 mg PO Q12HR 05/02/18 [History] ALPRAZolam [Xanax] 0.25 mg PO BID PRN 3 Days #60 tab 05/08/18 [Rx] MORPHINE ORAL JOHANA CONC 20mg/mL [Roxanol Oral Soln Conc 20MG/ML] 10 mg PO Q4H PRN 30 Days #45 ml 05/08/18 [Rx] Pantoprazole [Protonix] 40 mg PO AC-BID #60 tablet.dr 05/08/18 [Rx] fentaNYL 50MCG/HR PATCH [Duragesic 50MCG/HR] 1 patch TRANSDERM Q72H PRN #10 patch 05/08/18 [Rx] Follow up Appointment(s)/Referral(s): Reanna Nelson MD [Primary Care Provider] - 1-2 days [facility] Visiting Nurse, [NON-STAFF] - Patient Instructions/Handouts: Alprazolam (By mouth), Morphine, Rapid Release ( By mouth), Fentanyl (Absorbed through the skin), Pantoprazole (By mouth), Pancreatic Cancer (DC), Bowel Obstruction (DC) Activity/Diet/Wound Care/Special Instructions: Pls f/u with Hospice for all the need, they will get in touch with your PCP and refill the meds Discharge Disposition: HOME SELF-CARE
== END 2018-05-08 14:25 | disposition still patient (30) | DRG 389 ==
LOC: EC 13:45 → 4MS4W 17:38 → 3NMEDONC 05-03 15:32
PROVIDERS: ADMIT Hospitalist; ATTEND Hospitalist
PROC: 0W9G3ZZ Drainage of Peritoneal Cavity, Percutaneous Approach (ICD-10-PCS; principal; 2018-05-06)
DX: K56.609 Unspecified intestinal obstruction, unspecified as to partial versus complete obstruction (principal); C16.9 Malignant neoplasm of stomach, unspecified; C78.6 Secondary malignant neoplasm of retroperitoneum and peritoneum; J90 Pleural effusion, not elsewhere classified; J98.11 Atelectasis; R18.0 Malignant ascites; Z51.5 Encounter for palliative care; Z66 Do not resuscitate; F17.290 Nicotine dependence, other tobacco product, uncomplicated; K21.0 Gastro-esophageal reflux disease with esophagitis; K44.9 Diaphragmatic hernia without obstruction or gangrene; Z85.07 Personal history of malignant neoplasm of pancreas; Z86.010 Personal history of colon polyps; Z79.891 Long term (current) use of opiate analgesic; R56.9 Unspecified convulsions; F41.9 Anxiety disorder, unspecified; H53.40 Unspecified visual field defects
CPT/HCPCS: 36415; 49083; 74176; 80048; 80053; 81003; 83605; 85025; 85027; 85049; 85610; 86850; 86900; 86901; 96361; 96365; 96366; 96375; 96376; 99285